=== PATIENT | male | born 1990 | race Caucasian/White ===

== ENCOUNTER 2017-07-27 13:47 | Inpatient (IN) | payer BC, MEDICAID ==
[~2017-07-27] VITALS: Ht 180.3 cm; Wt 59.1 kg
[~2017-07-27 13:47] MED LIST: CYCL-1 PO; FAMO20TA8 PO; GABA-534 PO; INSU100V11 SQ; LANTUS SQ; ONDA4TAB9 PO; PANT-47 PO; POTA20TA19 PO
[2017-07-27] MEDS ORDERED: normal saline 1000ML IV soln IVB ONE ×3 (14:05→17:05)
[2017-07-27 14:30] LABS: HEMATOCRIT 47.3 % (42.0-52.0); HEMOGLOBIN 15.7 g/dl (14.0-17.9); MEAN CORPUSCULAR HEMOGLOBIN 28.9 PG (27.0-31.0); MEAN CORPUSCULAR HGB CONC 33.2 % (33.0-36.5); PLATELET COUNT 608 X10'3 (140-440); RED BLOOD COUNT 5.44 X10'6 (4.70-6.10); RED CELL DISTRIBUTION WIDTH 12.2 % (11.5-14.5)
[2017-07-27] MEDS ORDERED: ondansetron/PF 4mg/2ml inj IV ONE (14:30)
[2017-07-27 14:37] LABS: WHITE BLOOD COUNT 31.4 X10'3 (4.5-11.0)
[2017-07-27 14:52] LABS: HYPOCHROMASIA 1+; MICROCYTOSIS 1+; PLATELET ESTIMATE INCREASED; TOTAL CELLS COUNTED 100
[2017-07-27] MEDS ORDERED: proCHLORperazine 10 MG/2 ml inj IV ONE (14:55)
[2017-07-27] MEDS ORDERED: pantoprazole 40 MG vial IV ONE (14:55)
[2017-07-27 15:27] LABS: INR 1.1 INR; PARTIAL THROMBOPLASTIN TIME 24 SECONDS (22-32); PROTHROMBIN TIME 11.4 SECONDS (9.0-12.0)
[2017-07-27] MEDS ORDERED: LORazepam 2 mg/ml vial IV ONE (16:05)
[2017-07-27 16:22] LABS: ALANINE AMINOTRANSFERASE 16 U/L (12-78); ALBUMIN 3.2 G/DL (3.4-5.0); ALKALINE PHOSPHATASE 72 IU/L (46-116); ANION GAP 24 (8-16); ASPARTATE AMINO TRANSFERASE 13 U/L (10-37); BILIRUBIN,TOTAL 0.7 MG/DL (0.1-1.0); BLOOD UREA NITROGEN 33 MG/DL (7-18); BUN/CREATININE RATIO 17.5 (5.4-32.0); CALCIUM 8.3 MG/DL (8.5-10.1); CHLORIDE 97 MMOL/L (99-107); CREATININE 1.89 MG/DL (0.60-1.10); GLUCOSE 299 MG/DL (70-104); SODIUM 142 MMOL/L (135-145); TOTAL CARBON DIOXIDE 21.5 MMOL/L (24-32); TOTAL PROTEIN 6.4 G/DL (6.4-8.2); eGFR 43 ML/MIN
[2017-07-27 16:31] LABS: POTASSIUM 2.9 MMOL/L (3.5-5.1)
[2017-07-27 16:53] LABS: CLARITY,URINE SLIGHTLY CLOUDY (Clear); COLOR,URINE YELLOW (Yellow); GLUCOSE, URINE >=1000 mg/dl (Neg); KETONES,URINE >=80 mg/dl (Neg); LEUKOCYTE ESTERASE ,URINE NEGATIVE (Neg); NITRITES, URINE NEGATIVE (Neg); OCCULT BLOOD,URINE MODERATE (Neg); PH,URINE 5.5 (4.8-8.0); PROTEIN,URINE 30 mg/dl (Neg); UROBILINOGEN,URINE 0.2 E.U/dL (0.2-1.0)
[2017-07-27 17:02] LABS: UA COLLECTION TYPE URINAL
[2017-07-27 17:03] LABS: BACTERIA,URINE NONE SEEN /HPF (Neg); HYALINE CASTS 0-3 /LPF (NEGATIVE); MUCUS STRANDS MODERATE /LPF (Neg); SQUAMOUS EPITHELIAL CELL,UR NONE SEEN /LPF (FEW); WBC,URINE 0-4 /HPF (0-4)
[2017-07-27] MEDS ORDERED: glucagon, human recombinant 1mg kit SUBCUT PRN (17:15)
[2017-07-27] MEDS ORDERED: dextrose 50%-water 50ml dispensing syringe IV PRN ×2 (17:15)
[2017-07-27] MEDS ORDERED: dextrose ORAL solution 15 GM/59 ML bottle PO PRN ×2 (17:15)
[2017-07-27] MEDS ORDERED: MESSAGE TO PHARMACY PO ONE (17:15)
[2017-07-27] MEDS ORDERED: cefepime 1GM/NS ADD-VANTAGE 100 ML IV ONE (17:15)
[2017-07-27 17:19] LABS: MAGNESIUM 1.1 MG/DL (1.5-2.4); PHOSPHORUS 2.4 MG/DL (2.3-4.5)
[2017-07-27 17:21] LABS: URINE AMPHETAMINE SCREEN NEGATIVE (Neg); URINE BARBITUATE SCREEN NEGATIVE (Neg); URINE BENZODIAZEPINES SCREEN NEGATIVE (Neg); URINE CANNABINOID SCREEN POSITIVE (Neg); URINE COCAINE SCREEN NEGATIVE (Neg); URINE METHADONE SCREEN NEGATIVE (Neg); URINE OPIATE SCREEN NEGATIVE (Neg); URINE PHENCYCLIDINE SCREEN NEGATIVE (Neg)
[2017-07-27] MEDS: potassium 10mEq/100ml NS w/LIDOcaine (10mg/bag) IV SCH ×2 (17:40→20:41)
[2017-07-27] MEDS ORDERED: vancomycin/NS 1 GM ADD-VANTAGE 250 ML IV ONE (17:40)
[2017-07-27 18:08] LABS: HEMATOCRIT 40.4 % (42.0-52.0); HEMOGLOBIN 13.4 g/dl (14.0-17.9); MEAN CORPUSCULAR HEMOGLOBIN 29.4 PG (27.0-31.0); MEAN CORPUSCULAR HGB CONC 33.3 % (33.0-36.5); MEAN CORPUSCULAR VOLUME 88.5 FL (78-98); MEAN PLATELET VOLUME 9.3 FL (7.4-10.4); PLATELET COUNT 479 X10'3 (140-440); RED BLOOD COUNT 4.57 X10'6 (4.70-6.10); RED CELL DISTRIBUTION WIDTH 12.5 % (11.5-14.5)
[2017-07-27 18:09] LABS: WHITE BLOOD COUNT 29.5 X10'3 (4.5-11.0)
[2017-07-27 18:21] LABS: MICROCYTOSIS 1+; PLATELET ESTIMATE INCREASED; TOTAL CELLS COUNTED 100
[2017-07-27] MEDS: metoclopramide 5 mg/ml inj IV PRN (18:27)
[2017-07-27] MEDS: ondansetron 4mg rapidly disintigrating tab PO PRN ×2 (18:29→22:27)
[2017-07-27 18:31] LABS: ALANINE AMINOTRANSFERASE 18 U/L (12-78); ALBUMIN 3.2 G/DL (3.4-5.0); ALKALINE PHOSPHATASE 72 IU/L (46-116); ANION GAP 21 (8-16); ASPARTATE AMINO TRANSFERASE 13 U/L (10-37); BILIRUBIN,TOTAL 0.7 MG/DL (0.1-1.0); BLOOD UREA NITROGEN 29 MG/DL (7-18); BUN/CREATININE RATIO 26.4 (5.4-32.0); CALCIUM 8.3 MG/DL (8.5-10.1); CHLORIDE 96 MMOL/L (99-107); GLUCOSE 337 MG/DL (70-104); MAGNESIUM 1.4 MG/DL (1.5-2.4); PHOSPHORUS 3.7 MG/DL (2.3-4.5); POTASSIUM 3.3 MMOL/L (3.5-5.1); SODIUM 136 MMOL/L (135-145); TOTAL CARBON DIOXIDE 18.9 MMOL/L (24-32); TOTAL PROTEIN 6.3 G/DL (6.4-8.2); eGFR 80 ML/MIN
[2017-07-27 18:41] LABS: HEMOGLOBIN A1C 8.3 % (4.5-6.2)
[2017-07-27] MEDS: [UNRECOGNIZED DRUG - OTHER] IV SCH ×8 (19:22→22:13)
[2017-07-27] MEDS: POTASSIUM CL IV SCH ×8 (19:22→22:13)
[2017-07-27] MEDS: MAGNESIUM IV SCH ×8 (19:22→22:13)
[2017-07-27] MEDS: pantoprazole 40 MG vial IV SCH (20:51)
[2017-07-27] MEDS: Insulin Detemir pen SQ SCH (21:15)
[2017-07-27] MEDS: insulin Lispro (HumaLOG) vial - multi-dose SQ SCH (21:16)
[2017-07-27 22:00] VITALS: BP 124/72
[2017-07-28] VITALS (16 sets, daily range): BP systolic 113–146; BP diastolic 66–91
[2017-07-28 01:17] LABS: BASOPHILS # (AUTO) 0.1 X10'3 (0-0.2); BASOPHILS % (AUTO) 0.2 % (0-1); EOSINOPHILS % (AUTO) 0 % (0-6); HEMATOCRIT 39.2 % (42.0-52.0); HEMOGLOBIN 13.2 g/dl (14.0-17.9); LYMPHOCYTES % (AUTO) 3.2 % (21-51); MEAN CORPUSCULAR HEMOGLOBIN 29.2 PG (27.0-31.0); MEAN CORPUSCULAR HGB CONC 33.7 % (33.0-36.5); MEAN CORPUSCULAR VOLUME 86.6 FL (78-98); MEAN PLATELET VOLUME 9.4 FL (7.4-10.4); MONOCYTES # (AUTO) 2.1 X10'3 (0-0.9); MONOCYTES % (AUTO) 6.8 % (2-12); NEUTROPHILS # (AUTO) 28.3 X10'3 (1.8-7.7); NEUTROPHILS % (AUTO) 89.8 % (42-75); PLATELET COUNT 419 X10'3 (140-440); RED BLOOD COUNT 4.52 X10'6 (4.70-6.10); RED CELL DISTRIBUTION WIDTH 11.8 % (11.5-14.5)
[2017-07-28 01:18] LABS: ALANINE AMINOTRANSFERASE 19 U/L (12-78); ALBUMIN 3.2 G/DL (3.4-5.0); ALKALINE PHOSPHATASE 72 IU/L (46-116); ANION GAP 16 (8-16); ASPARTATE AMINO TRANSFERASE 17 U/L (10-37); BILIRUBIN,TOTAL 0.7 MG/DL (0.1-1.0); BLOOD UREA NITROGEN 22 MG/DL (7-18); BUN/CREATININE RATIO 26.2 (5.4-32.0); CALCIUM 8.3 MG/DL (8.5-10.1); CHLORIDE 102 MMOL/L (99-107); CREATININE 0.84 MG/DL (0.60-1.10); GLUCOSE 151 MG/DL (70-104); POTASSIUM 4.2 MMOL/L (3.5-5.1); SODIUM 137 MMOL/L (135-145); TOTAL CARBON DIOXIDE 19.5 MMOL/L (24-32); TOTAL PROTEIN 6.4 G/DL (6.4-8.2); WHITE BLOOD COUNT 31.5 X10'3 (4.5-11.0); eGFR > 90 ML/MIN
[2017-07-28 01:22] LABS: MAGNESIUM 1.7 MG/DL (1.5-2.4); PHOSPHORUS 3.2 MG/DL (2.3-4.5)
[2017-07-28 02:13] LABS: TOTAL CELLS COUNTED 100
[2017-07-28 02:14] LABS: LARGE PLATELETS FEW; MICROCYTOSIS 1+; PLATELET ESTIMATE NORMAL
[2017-07-28] MEDS: [UNRECOGNIZED DRUG - OTHER] IV SCH ×24 (02:49→20:24)
[2017-07-28] MEDS: MAGNESIUM IV SCH ×24 (02:49→20:24)
[2017-07-28] MEDS: POTASSIUM CL IV SCH ×24 (02:49→20:24)
[2017-07-28] MEDS: cefepime 1GM/NS ADD-VANTAGE 100 ML IV SCH ×2 (07:38→20:24)
[2017-07-28] MEDS: pantoprazole 40 MG vial IV SCH (07:38)
[2017-07-28] MEDS: ondansetron/PF 4mg/2ml inj IV PRN ×3 (07:53→20:24)
[2017-07-28] MEDS ORDERED: vancomycin/NS 1 GM ADD-VANTAGE 250 ML IV ONE (08:00)
[2017-07-28 08:01] LABS: BASOPHILS % (AUTO) 0 % (0-1); EOSINOPHILS # (AUTO) 0.5 X10'3 (0-0.9); EOSINOPHILS % (AUTO) 1.7 % (0-6); HEMOGLOBIN 12.2 g/dl (14.0-17.9); LYMPHOCYTES # (AUTO) 1.1 X10'3 (1.1-4.8); MEAN CORPUSCULAR HEMOGLOBIN 29.1 PG (27.0-31.0); MEAN CORPUSCULAR HGB CONC 33.1 % (33.0-36.5); MEAN CORPUSCULAR VOLUME 88.1 FL (78-98); MEAN PLATELET VOLUME 8.9 FL (7.4-10.4); MONOCYTES # (AUTO) 1.6 X10'3 (0-0.9); MONOCYTES % (AUTO) 5.9 % (2-12); NEUTROPHILS # (AUTO) 24.6 X10'3 (1.8-7.7); NEUTROPHILS % (AUTO) 88.4 % (42-75); PLATELET COUNT 360 X10'3 (140-440); RED CELL DISTRIBUTION WIDTH 12.7 % (11.5-14.5)
[2017-07-28 08:11] LABS: WHITE BLOOD COUNT 27.8 X10'3 (4.5-11.0)
[2017-07-28 08:30] LABS: ALANINE AMINOTRANSFERASE 21 U/L (12-78); ALBUMIN 3.1 G/DL (3.4-5.0); ALBUMIN/GLOBULIN RATIO 0.9 (1.1-1.5); ALKALINE PHOSPHATASE 70 IU/L (46-116); ANION GAP 15 (8-16); ASPARTATE AMINO TRANSFERASE 19 U/L (10-37); BILIRUBIN,TOTAL 0.6 MG/DL (0.1-1.0); BLOOD UREA NITROGEN 14 MG/DL (7-18); BUN/CREATININE RATIO 19.7 (5.4-32.0); CALCIUM 8.6 MG/DL (8.5-10.1); CHLORIDE 102 MMOL/L (99-107); CREATININE 0.71 MG/DL (0.60-1.10); GLUCOSE 105 MG/DL (70-104); MAGNESIUM 2.1 MG/DL (1.5-2.4); PHOSPHORUS 3.1 MG/DL (2.3-4.5); POTASSIUM 4.5 MMOL/L (3.5-5.1); SODIUM 135 MMOL/L (135-145); TOTAL CARBON DIOXIDE 18.4 MMOL/L (24-32); TOTAL PROTEIN 6.4 G/DL (6.4-8.2); eGFR > 90 ML/MIN
[2017-07-28] MEDS ORDERED: metoclopramide 10mg tablet PO PRN (09:15)
[2017-07-28] MEDS ORDERED: insulin Lispro (HumaLOG) vial - multi-dose SQ SCH (09:15)
[2017-07-28] MEDS: pantoprazole 40mg Tablet.DR PO SCH (09:15)
[2017-07-28] MEDS ORDERED: ondansetron 4mg rapidly disintigrating tab PO PRN (09:15)
[2017-07-28] MEDS: potassium Cl 20 mEq SR tablet PO SCH (09:15)
[2017-07-28] MEDS ORDERED: cyclobenzaprine 10mg tablet PO PRN (09:15)
[2017-07-28] MEDS: sodium chloride 0.45% 1,000 ML IV SCH ×3 (09:45→11:33)
[2017-07-28] MEDS: proCHLORperazine 10 MG/2 ml inj IV PRN ×2 (10:55→18:37)
[2017-07-28 13:31] LABS: BASOPHILS % (AUTO) 0 % (0-1); EOSINOPHILS # (AUTO) 0.5 X10'3 (0-0.9); EOSINOPHILS % (AUTO) 1.8 % (0-6); HEMATOCRIT 36.3 % (42.0-52.0); HEMOGLOBIN 12.2 g/dl (14.0-17.9); LYMPHOCYTES # (AUTO) 1.2 X10'3 (1.1-4.8); LYMPHOCYTES % (AUTO) 4.9 % (21-51); MEAN CORPUSCULAR HEMOGLOBIN 29.6 PG (27.0-31.0); MEAN CORPUSCULAR HGB CONC 33.6 % (33.0-36.5); MEAN CORPUSCULAR VOLUME 87.9 FL (78-98); MEAN PLATELET VOLUME 8.4 FL (7.4-10.4); MONOCYTES # (AUTO) 1.6 X10'3 (0-0.9); MONOCYTES % (AUTO) 6.4 % (2-12); NEUTROPHILS % (AUTO) 86.9 % (42-75); PLATELET COUNT 342 X10'3 (140-440); RED BLOOD COUNT 4.12 X10'6 (4.70-6.10); RED CELL DISTRIBUTION WIDTH 12.8 % (11.5-14.5)
[2017-07-28 13:33] LABS: WHITE BLOOD COUNT 25.4 X10'3 (4.5-11.0)
[2017-07-28 13:45] LABS: ALANINE AMINOTRANSFERASE 21 U/L (12-78); ALBUMIN/GLOBULIN RATIO 0.9 (1.1-1.5); ALKALINE PHOSPHATASE 71 IU/L (46-116); ANION GAP 19 (8-16); ASPARTATE AMINO TRANSFERASE 18 U/L (10-37); BILIRUBIN,TOTAL 0.6 MG/DL (0.1-1.0); BLOOD UREA NITROGEN 8 MG/DL (7-18); BUN/CREATININE RATIO 12.5 (5.4-32.0); CALCIUM 8.5 MG/DL (8.5-10.1); CHLORIDE 99 MMOL/L (99-107); CREATININE 0.64 MG/DL (0.60-1.10); GLUCOSE 177 MG/DL (70-104); MAGNESIUM 1.9 MG/DL (1.5-2.4); PHOSPHORUS 2.7 MG/DL (2.3-4.5); POTASSIUM 4.4 MMOL/L (3.5-5.1); SODIUM 134 MMOL/L (135-145); TOTAL CARBON DIOXIDE 15.6 MMOL/L (24-32); TOTAL PROTEIN 6.4 G/DL (6.4-8.2); eGFR > 90 ML/MIN
[2017-07-28] MEDS: benzocaine/menthol oral lozeng 1 EACH BOX MM PRN ×2 (13:56→18:37)
[2017-07-28] MEDS: HYDROmorphone 2mg tablet PO PRN ×2 (15:15→20:25)
[2017-07-28] MEDS: gabapentin 400mg capsule PO SCH ×2 (16:00→23:55)
[2017-07-28] MEDS ORDERED: iohexol 300mg/ml 100ml inj. ONE (16:17)
[2017-07-28] MEDS: lactobacillus rhamnosus 10,000 MMU CELLS/CAPSULE PO SCH (17:30)
[2017-07-28] MEDS: VANCOMYCIN 750MG IV in NS 250 ML IV SCH (17:49)
[2017-07-28 19:33] LABS: BASOPHILS % (AUTO) 0 % (0-1); EOSINOPHILS # (AUTO) 0.4 X10'3 (0-0.9); EOSINOPHILS % (AUTO) 1.7 % (0-6); HEMATOCRIT 37.7 % (42.0-52.0); HEMOGLOBIN 12.7 g/dl (14.0-17.9); LYMPHOCYTES # (AUTO) 1.2 X10'3 (1.1-4.8); LYMPHOCYTES % (AUTO) 4.6 % (21-51); MEAN CORPUSCULAR HEMOGLOBIN 29.6 PG (27.0-31.0); MEAN CORPUSCULAR HGB CONC 33.6 % (33.0-36.5); MEAN CORPUSCULAR VOLUME 88.1 FL (78-98); MEAN PLATELET VOLUME 8.8 FL (7.4-10.4); MONOCYTES # (AUTO) 1.3 X10'3 (0-0.9); MONOCYTES % (AUTO) 5.3 % (2-12); NEUTROPHILS # (AUTO) 22.3 X10'3 (1.8-7.7); NEUTROPHILS % (AUTO) 88.4 % (42-75); PLATELET COUNT 356 X10'3 (140-440); RED BLOOD COUNT 4.28 X10'6 (4.70-6.10); RED CELL DISTRIBUTION WIDTH 12.7 % (11.5-14.5)
[2017-07-28 19:36] LABS: WHITE BLOOD COUNT 25.3 X10'3 (4.5-11.0)
[2017-07-28 20:00] LABS: ALANINE AMINOTRANSFERASE 25 U/L (12-78); ALBUMIN 3.2 G/DL (3.4-5.0); ALBUMIN/GLOBULIN RATIO 0.8 (1.1-1.5); ALKALINE PHOSPHATASE 84 IU/L (46-116); ANION GAP 20 (8-16); ASPARTATE AMINO TRANSFERASE 17 U/L (10-37); BILIRUBIN,TOTAL 0.6 MG/DL (0.1-1.0); BLOOD UREA NITROGEN 7 MG/DL (7-18); BUN/CREATININE RATIO 10.9 (5.4-32.0); CALCIUM 8.7 MG/DL (8.5-10.1); CHLORIDE 99 MMOL/L (99-107); CREATININE 0.64 MG/DL (0.60-1.10); GLUCOSE 204 MG/DL (70-104); MAGNESIUM 2.1 MG/DL (1.5-2.4); PHOSPHORUS 3.1 MG/DL (2.3-4.5); POTASSIUM 5.3 MMOL/L (3.5-5.1); SODIUM 132 MMOL/L (135-145); eGFR > 90 ML/MIN
[2017-07-28 20:18] LABS: TOTAL CARBON DIOXIDE 12.9 MMOL/L (24-32)
[2017-07-28] MEDS: famotidine 20mg tablet PO SCH (20:25)
[2017-07-28] MEDS ORDERED: insulin glargine (Lantus) pen - multi-dose SQ SCH (21:00)
[2017-07-28] MEDS: Insulin Detemir pen SQ SCH (21:00)
[2017-07-28] MEDS: metoclopramide 5 mg/ml inj IV PRN (23:03)
[2017-07-29] VITALS (10 sets, daily range): BP systolic 117–144; BP diastolic 68–95
[2017-07-29] MEDS: VANCOMYCIN 750MG IV in NS 250 ML IV SCH ×2 (00:08→09:35)
[2017-07-29] MEDS: proCHLORperazine 10 MG/2 ml inj IV PRN (00:50)
[2017-07-29] MEDS: POTASSIUM CL IV SCH ×12 (00:51→11:30)
[2017-07-29] MEDS: [UNRECOGNIZED DRUG - OTHER] IV SCH ×12 (00:51→11:30)
[2017-07-29] MEDS: MAGNESIUM IV SCH ×12 (00:51→11:30)
[2017-07-29] MEDS: HYDROmorphone 2mg tablet PO PRN ×2 (02:02→06:53)
[2017-07-29] MEDS ORDERED: LORazepam 2 mg/ml vial IV ONE (02:40)
[2017-07-29] MEDS: ondansetron/PF 4mg/2ml inj IV PRN ×2 (03:30→10:00)
[2017-07-29] MEDS: metoclopramide 5 mg/ml inj IV PRN (06:53)
[2017-07-29] MEDS: ringers solution, lacted 1,000 ML IV SCH ×2 (07:08→09:16)
[2017-07-29] MEDS ORDERED: VANCOMYCIN LEVEL IV ONE (07:30)
[2017-07-29] MEDS: lactobacillus rhamnosus 10,000 MMU CELLS/CAPSULE PO SCH (07:30)
[2017-07-29] MEDS: insulin Lispro (HumaLOG) vial - multi-dose SQ SCH (07:36)
[2017-07-29] MEDS: pantoprazole 40mg Tablet.DR PO SCH (08:00)
[2017-07-29] MEDS: famotidine 20mg tablet PO SCH (08:00)
[2017-07-29] MEDS: potassium Cl 20 mEq SR tablet PO SCH (08:00)
[2017-07-29] MEDS: gabapentin 400mg capsule PO SCH (08:00)
[2017-07-29 08:24] LABS: BASOPHILS % (AUTO) 0 % (0-1); EOSINOPHILS # (AUTO) 0.4 X10'3 (0-0.9); EOSINOPHILS % (AUTO) 1.6 % (0-6); HEMATOCRIT 43.8 % (42.0-52.0); HEMOGLOBIN 14.3 g/dl (14.0-17.9); LYMPHOCYTES # (AUTO) 0.8 X10'3 (1.1-4.8); LYMPHOCYTES % (AUTO) 3.6 % (21-51); MEAN CORPUSCULAR HEMOGLOBIN 29.2 PG (27.0-31.0); MEAN CORPUSCULAR HGB CONC 32.6 % (33.0-36.5); MEAN CORPUSCULAR VOLUME 89.5 FL (78-98); MEAN PLATELET VOLUME 9.4 FL (7.4-10.4); MONOCYTES # (AUTO) 0.8 X10'3 (0-0.9); MONOCYTES % (AUTO) 3.8 % (2-12); NEUTROPHILS # (AUTO) 19.6 X10'3 (1.8-7.7); PLATELET COUNT 369 X10'3 (140-440); RED BLOOD COUNT 4.89 X10'6 (4.70-6.10); RED CELL DISTRIBUTION WIDTH 12.9 % (11.5-14.5); WHITE BLOOD COUNT 21.5 X10'3 (4.5-11.0)
[2017-07-29] MEDS: cefepime 1GM/NS ADD-VANTAGE 100 ML IV SCH (08:41)
[2017-07-29 08:46] LABS: ALANINE AMINOTRANSFERASE 25 U/L (12-78); ALBUMIN 3.6 G/DL (3.4-5.0); ALBUMIN/GLOBULIN RATIO 0.8 (1.1-1.5); ALKALINE PHOSPHATASE 111 IU/L (46-116); ANION GAP 27 (8-16); ASPARTATE AMINO TRANSFERASE 16 U/L (10-37); BILIRUBIN,TOTAL 0.6 MG/DL (0.1-1.0); BLOOD UREA NITROGEN 11 MG/DL (7-18); BUN/CREATININE RATIO 13.6 (5.4-32.0); CALCIUM 9.5 MG/DL (8.5-10.1); CHLORIDE 94 MMOL/L (99-107); CREATININE 0.81 MG/DL (0.60-1.10); GLUCOSE 277 MG/DL (70-104); MAGNESIUM 2.3 MG/DL (1.5-2.4); SODIUM 127 MMOL/L (135-145); TOTAL PROTEIN 8.3 G/DL (6.4-8.2); VANCOMYCIN,TROUGH 6.3 UG/ML (6.0-14.0); eGFR > 90 ML/MIN
[2017-07-29 08:49] LABS: POTASSIUM 6.3 MMOL/L (3.5-5.1)
[2017-07-29 08:50] LABS: TOTAL CARBON DIOXIDE 5.6 MMOL/L (24-32)
[2017-07-29 08:51] LABS: TROPONIN I < 0.04 NG/ML (0.0-0.05)
[2017-07-29] MEDS ORDERED: insulin regular, DKA only 100 UNIT in normal saline 100ml IV soln 99 ML IV SCH ×2 (09:07)
[2017-07-29] MEDS ORDERED: dextrose 5%-normal saline 1,000 ML IV SCH (09:10)
[2017-07-29 11:48] LABS: ALBUMIN 3.1 G/DL (3.4-5.0); ANION GAP 22 (8-16); BLOOD UREA NITROGEN 10 MG/DL (7-18); BUN/CREATININE RATIO 11.6 (5.4-32.0); CALCIUM 8.8 MG/DL (8.5-10.1); CHLORIDE 100 MMOL/L (99-107); CREATININE 0.86 MG/DL (0.60-1.10); GLUCOSE 171 MG/DL (70-104); PHOSPHORUS 3.1 MG/DL (2.3-4.5); POTASSIUM 4.9 MMOL/L (3.5-5.1); SODIUM 132 MMOL/L (135-145); eGFR > 90 ML/MIN
[2017-07-29 11:50] LABS: TOTAL CARBON DIOXIDE 9.6 MMOL/L (24-32)
[2017-07-29] MEDS ORDERED: HYDROmorphone 2mg tablet PO PRN (11:55)
[2017-07-29] MEDS ORDERED: potassium Cl 20mEq in D5-NS 1,000 ML IV SCH (12:10)
[2017-07-29 13:51] LABS: ALBUMIN 2.9 G/DL (3.4-5.0); ANION GAP 17 (8-16); BLOOD UREA NITROGEN 10 MG/DL (7-18); BUN/CREATININE RATIO 12.3 (5.4-32.0); CALCIUM 8.9 MG/DL (8.5-10.1); CHLORIDE 104 MMOL/L (99-107); CREATININE 0.81 MG/DL (0.60-1.10); GLUCOSE 76 MG/DL (70-104); MAGNESIUM 1.8 MG/DL (1.5-2.4); POTASSIUM 4.2 MMOL/L (3.5-5.1); SODIUM 134 MMOL/L (135-145); eGFR > 90 ML/MIN
[2017-07-29 13:53] LABS: TOTAL CARBON DIOXIDE 13.2 MMOL/L (24-32)
[2017-07-29] MEDS ORDERED: vancomycin/NS 1 GM ADD-VANTAGE 250 ML IV SCH (16:00)
[2017-07-29] MEDS ORDERED: famotidine/PF 10 mg/ml inj IV SCH (20:00)
[2017-07-30] MEDS ORDERED: VANCOMYCIN LEVEL IV ONE (15:30)
[2017-07-31] MEDS ORDERED: INSU100V9 SQ (17:55)
[2017-08-02] MEDS ORDERED: HYDR-569 PO (11:43)
== END 2017-07-29 15:20 | disposition left against medical advice (07) | DRG 638 ==
LOC: ER 13:48 → ED HOLD 17:13 → EDBEDREQ 18:29 → PCU 3S 18:59 → ICU 2S 07-28 10:00
PROVIDERS: ADMIT Internal Medicine Critical Care Medicine; ATTEND Internal Medicine Critical Care Medicine
PROC: BW211ZZ Computerized Tomography (CT Scan) of Abdomen and Pelvis using Low Osmolar Contrast (ICD-10-PCS; principal; 2017-07-28)
DX: E10.10 Type 1 diabetes mellitus with ketoacidosis without coma (principal); N17.9 Acute kidney failure, unspecified; E86.0 Dehydration; G89.29 Other chronic pain; K52.9 Noninfective gastroenteritis and colitis, unspecified; F12.90 Cannabis use, unspecified, uncomplicated; M54.9 Dorsalgia, unspecified; Z53.21 Procedure and treatment not carried out due to patient leaving prior to being seen by health care provider; D72.829 Elevated white blood cell count, unspecified; Z79.899 Other long term (current) drug therapy; Z79.4 Long term (current) use of insulin; Z83.3 Family history of diabetes mellitus; Z86.14 Personal history of Methicillin resistant Staphylococcus aureus infection
CPT/HCPCS: 36415; 71010; 74176; 74177; 76700; 80048; 80053; 80202; 80305; 81001; 81002; 82009; 82948; 83036; 83605; 83735; 83880; 84100; 84145; 84439; 84443; 84484; 85025; 85610; 85730; 87040; 87070; 87081; 87502; 87503; 87880; 93005; 96361; 96374; 96375; 99291; A6213; A6449; C9113; J0692; J0780; J1815; J2060; J2270; J2405; J2765; J3370; J3475; J3480; J7030; J7042; J7120; Q9967

== ENCOUNTER 2019-07-28 15:49 | Inpatient (IN) | payer BC, OTHER ==
[~2019-07-28] VITALS: Ht 180.3 cm; Wt 71.4 kg
[~2019-07-28 15:49] MED LIST changes: -CYCL-1 PO; +DOXY100C2 PO; -FAMO20TA8 PO; -GABA-534 PO; +GABA600T13 PO; +INSU100C10 SQ; -INSU100V11 SQ; +INSU100V9 SQ; -LANTUS SQ; -ONDA4TAB9 PO; -PANT-47 PO; -POTA20TA19 PO
[2019-07-28] MEDS ORDERED: normal saline 1000ML IV soln IVB ONE ×3 (16:05→16:50)
[2019-07-28] MEDS ORDERED: diphenhydrAMINE 50 mg/ml inj IV ONE (16:05)
[2019-07-28] MEDS ORDERED: pantoprazole 40 MG vial IV ONE (16:05)
[2019-07-28] MEDS ORDERED: proCHLORperazine 10 MG/2 ml inj IV ONE (16:05)
[2019-07-28 16:28] LABS: BASOPHILS % (AUTO) 0.2 % (0-1); EOSINOPHILS % (AUTO) 0 % (0-6); HEMATOCRIT 40.8 % (42.0-52.0); HEMOGLOBIN 12.9 g/dl (14.0-17.9); LYMPHOCYTES # (AUTO) 0.9 X10'3 (1.1-4.8); LYMPHOCYTES % (AUTO) 4.1 % (21-51); MEAN CORPUSCULAR HEMOGLOBIN 26.9 PG (27.0-31.0); MEAN CORPUSCULAR HGB CONC 31.6 g/dL (33.0-36.5); MEAN CORPUSCULAR VOLUME 85.1 FL (78-98); MEAN PLATELET VOLUME 8.6 FL (7.4-10.4); MONOCYTES # (AUTO) 0.6 X10'3 (0-0.9); MONOCYTES % (AUTO) 2.7 % (2-12); PLATELET COUNT 475 X10'3 (140-440); RED BLOOD COUNT 4.79 X10'6 (4.70-6.10); RED CELL DISTRIBUTION WIDTH 16.1 % (11.5-14.5); WHITE BLOOD COUNT 22.6 X10'3 (4.5-11.0)
[2019-07-28 16:40] LABS: CLARITY,URINE CLEAR (Clear); COLOR,URINE YELLOW (Yellow); GLUCOSE, URINE 500 mg/dl (Neg); KETONES,URINE >=80 mg/dl (Neg); LEUKOCYTE ESTERASE ,URINE NEGATIVE (Neg); NITRITES, URINE NEGATIVE (Neg); OCCULT BLOOD,URINE TRACE-INTACT (Neg); PH,URINE 5.5 (4.8-8.0); PROTEIN,URINE NEGATIVE (Neg); UROBILINOGEN,URINE 0.2 E.U/dL (0.2-1.0)
[2019-07-28 16:41] LABS: UA COLLECTION TYPE URINAL
[2019-07-28 16:43] LABS: ALANINE AMINOTRANSFERASE 66 U/L (12-78); ALBUMIN 3.3 G/DL (3.4-5.0); ALBUMIN/GLOBULIN RATIO 0.9 (1.1-1.5); ALKALINE PHOSPHATASE 94 IU/L (46-116); ANION GAP 26 (8-16); ASPARTATE AMINO TRANSFERASE 66 U/L (10-37); BILIRUBIN,TOTAL 0.5 MG/DL (0.1-1.0); BLOOD UREA NITROGEN 16 MG/DL (7-18); BUN/CREATININE RATIO 11.9 (5.4-32.0); CALCIUM 7.9 MG/DL (8.5-10.1); CHLORIDE 101 MMOL/L (99-107); CREATININE 1.34 MG/DL (0.60-1.10); LIPASE < 50 U/L (73-393); POTASSIUM 4.9 MMOL/L (3.5-5.1); SODIUM 135 MMOL/L (135-145); eGFR 63 ML/MIN
[2019-07-28 16:45] LABS: GLUCOSE 480 MG/DL (70-104)
[2019-07-28] MEDS ORDERED: LORazepam 2 mg/ml vial IV ONE (16:45)
[2019-07-28 16:46] LABS: TOTAL CARBON DIOXIDE 7.9 MMOL/L (24-32)
[2019-07-28] MEDS ORDERED: normal saline 1000ml 1,000 ML IV SCH ×2 (16:48→18:16)
[2019-07-28] MEDS ORDERED: potassium CL 20mEq in D5-1/2NS 1,000 ML IV PRN (16:48)
[2019-07-28 16:49] LABS: BACTERIA,URINE NONE SEEN /HPF (Neg); MUCUS STRANDS NONE SEEN /LPF (Neg); RBC,URINE 0-2 /HPF (0-2); SQUAMOUS EPITHELIAL CELL,UR FEW /LPF (FEW); WBC,URINE 0-4 /HPF (0-4)
[2019-07-28] MEDS ORDERED: sodium phosphate inj. 15 MMOL in dextrose 5%-water 150 ML IV PRN ×2 (16:50→18:20)
[2019-07-28] MEDS ORDERED: potassium Cl 20 mEq SR tablet PO PRN ×6 (16:50→18:20)
[2019-07-28] MEDS ORDERED: sodium phosphate inj. 30 MMOL in dextrose 5%-water 250 ML IV PRN ×2 (16:50→18:20)
[2019-07-28] MEDS ORDERED: potassium CL 10mEq/100ml bag 100 ML IV PRN ×5 (16:50→18:20)
[2019-07-28] MEDS ORDERED: Neutra Phos packet PO PRN ×2 (16:50→18:20)
[2019-07-28 17:11] LABS: ABG HCO3 4.8 mmol/L (22.0-26.0); ABG OXYGEN SATURATION 97.8 % (95-98); ABG PCO2 (T) 13.1 mmHg (35.0-45.0); ABG PH (T) 7.182 (7.350-7.450); ALLEN'S TEST Positive; FCOHb 0.1 % (0.5-1.5); FMetHb 0.4 % (0.3-1.12); FO2Hb 97.3 % (94-100); TOTAL HEMOGLOBIN 13.2 G/dl (14.0-17.9)
[2019-07-28 17:29] LABS: MAGNESIUM 1.8 MG/DL (1.5-2.4); PHOSPHORUS 4.5 MG/DL (2.3-4.5)
[2019-07-28] MEDS: insulin regular, DKA only 100 UNIT in normal saline 100ml IV soln 100 ML IV SCH ×2 (17:55)
[2019-07-28] MEDS: insulin regular, human vial - multi-dose IV PRN (17:56)
[2019-07-28] MEDS ORDERED: CYCL-1 PO (18:15)
[2019-07-28] MEDS ORDERED: sodium bicarbonate (8.4%) inj. 100 MEQ in dextrose 5% water 500ml 500 ML IV PRN (18:16)
[2019-07-28] MEDS ORDERED: insulin regular, DKA only 100 UNIT in normal saline 100ml IV soln 100 ML IV SCH ×2 (18:16)
[2019-07-28] MEDS ORDERED: sodium bicarbonate (8.4%) inj. 50 MEQ in dextrose 5% water 500ml 250 ML IV PRN (18:16)
[2019-07-28] MEDS ORDERED: ondansetron/PF 4mg/2ml inj IV PRN (18:20)
[2019-07-28] MEDS ORDERED: morphine 2 MG/ML inj. syringe IV PRN ×2 (18:20)
[2019-07-28] MEDS ORDERED: insulin regular, human vial - multi-dose IV PRN (18:20)
[2019-07-28] MEDS ORDERED: magnesium 2GM in 50ml NS 50 ML IV PRN (18:20)
[2019-07-28] MEDS ORDERED: magnesium 4gm in 100ml NS 100 ML IV PRN (18:20)
[2019-07-28] MEDS ORDERED: acetaminophen 325mg tablet PO PRN (18:20)
[2019-07-28] MEDS ORDERED: magnesium Cl slow-release 64mg tablet PO PRN (18:20)
[2019-07-28] MEDS ORDERED: HYDROcodone/acetaminophen 5mg/325mg tablet PO PRN (18:20)
[2019-07-28] MEDS ORDERED: HYDROcodone/acetaminophen 10/325mg tab PO PRN (18:20)
[2019-07-28] MEDS ORDERED: cyclobenzaprine 10mg tablet PO PRN (18:30)
--- NOTE | 2019-07-28 18:47 | NUR ---
PT TO CT
[2019-07-28] MEDS ORDERED: sodium bicarbonate (8.4%) inj. 100 MEQ in dextrose 5% water 500ml 1,000 ML IV PRN (18:57)
[2019-07-28] MEDS ORDERED: sodium bicarbonate (8.4%) inj. 75 MEQ in dextrose 5% water 500ml 500 ML IV PRN (18:58)
[2019-07-28] MEDS: potassium CL 10mEq/100ml bag 100 ML IV PRN (18:58)
[2019-07-28 19:06] LABS: HEMOGLOBIN A1C 11.4 % (4.5-6.2)
[2019-07-28 19:42] LABS: ALBUMIN 3.2 G/DL (3.4-5.0); ANION GAP 25 (8-16); BLOOD UREA NITROGEN 14 MG/DL (7-18); BUN/CREATININE RATIO 11.2 (5.4-32.0); CALCIUM 7.2 MG/DL (8.5-10.1); CHLORIDE 111 MMOL/L (99-107); CREATININE 1.25 MG/DL (0.60-1.10); GLUCOSE 282 MG/DL (70-104); PHOSPHORUS 2.5 MG/DL (2.3-4.5); POTASSIUM 4.7 MMOL/L (3.5-5.1); SODIUM 142 MMOL/L (135-145); eGFR 68 ML/MIN
[2019-07-28 19:45] LABS: TOTAL CARBON DIOXIDE 5.9 MMOL/L (24-32)
[2019-07-28 20:00] VITALS: BP 129/68
[2019-07-28] MEDS ORDERED: K and/or MAG REPLACEMENT MC SCH ×2 (20:00)
[2019-07-28] MEDS: K and/or MAG REPLACEMENT MC SCH (20:00)
--- NOTE | 2019-07-28 20:00 | NUR ---
Patient in room PCU 3014. I have received report from NILE Santos and had the opportunity to ask questions and assume patient care.Patient arrived on unit at approx 2000 ambulated to bed, on insuling drip and ns with 20 k
[2019-07-28] MEDS: potassium CL 20mEq in D5-1/2NS 1,000 ML IV PRN ×3 (20:14→21:56)
[2019-07-28] MEDS: docusate sod 100mg capsule PO SCH (20:21)
[2019-07-28] MEDS: heparin, porcine 5000 units/ml vial SQ SCH (20:21)
--- NOTE | 2019-07-28 20:42 | NUR ---
Patient switched to D5 1/2 NS with 20 K at 150
[2019-07-28] MEDS ORDERED: temazepam 15mg capsule PO PRN (21:00)
[2019-07-28 21:42] LABS: ANION GAP 20 (8-16); BLOOD UREA NITROGEN 13 MG/DL (7-18); BUN/CREATININE RATIO 11.7 (5.4-32.0); CALCIUM 7.3 MG/DL (8.5-10.1); CHLORIDE 114 MMOL/L (99-107); CREATININE 1.11 MG/DL (0.60-1.10); GLUCOSE 129 MG/DL (70-104); SODIUM 145 MMOL/L (135-145); eGFR 78 ML/MIN
[2019-07-28 21:49] LABS: TOTAL CARBON DIOXIDE 10.9 MMOL/L (24-32)
[2019-07-28] MEDS: Potassium Cl inj 20 MEQ in DEXTROSE 10 % AND 0.45 % NACL 1,000 ML IV SCH (22:27)
[2019-07-28 23:04] VITALS: BP 117/68
[2019-07-29 00:26] LABS: ALBUMIN 3.2 G/DL (3.4-5.0); ANION GAP 10 (8-16); BLOOD UREA NITROGEN 12 MG/DL (7-18); CALCIUM 7.7 MG/DL (8.5-10.1); CHLORIDE 114 MMOL/L (99-107); CREATININE 1.09 MG/DL (0.60-1.10); GLUCOSE 87 MG/DL (70-104); POTASSIUM 3.7 MMOL/L (3.5-5.1); SODIUM 143 MMOL/L (135-145); eGFR 79 ML/MIN
[2019-07-29] MEDS: insulin regular, DKA only 100 UNIT in normal saline 100ml IV soln 100 ML IV SCH ×4 (01:05→04:15)
--- NOTE | 2019-07-29 01:09 | NUR ---
Per Dr. Inman- change patient insulin drip from 5 u/hr to 4 u/hr and also to keep patient at 200 mL/hr D10 1/2NS w/20 k for potassium at 3.7, anion gap at 10, and carbon dioxide at 19.0 and improving.
[2019-07-29] MEDS: piperacillin/tazo 3.375gm/50ml 50 ML IV SCH ×4 (01:16→23:50)
[2019-07-29 03:07] VITALS: BP 118/74
--- NOTE | 2019-07-29 04:16 | NUR ---
Per Dr. Inman with BS of 68, turn insulin down to 3 units/hr and keep D10 1/2 NS w/20 k at 200 mL/hr
[2019-07-29] MEDS: Potassium Cl inj 20 MEQ in DEXTROSE 10 % AND 0.45 % NACL 1,000 ML IV SCH ×5 (04:36→16:19)
[2019-07-29 06:15] LABS: BASOPHILS # (AUTO) 0.1 X10'3 (0-0.2); BASOPHILS % (AUTO) 0.5 % (0-1); EOSINOPHILS % (AUTO) 0.1 % (0-6); HEMATOCRIT 33.5 % (42.0-52.0); HEMOGLOBIN 11.1 g/dl (14.0-17.9); LYMPHOCYTES # (AUTO) 1.5 X10'3 (1.1-4.8); LYMPHOCYTES % (AUTO) 8.1 % (21-51); MEAN CORPUSCULAR HEMOGLOBIN 27.2 PG (27.0-31.0); MEAN CORPUSCULAR HGB CONC 33.2 g/dL (33.0-36.5); MEAN CORPUSCULAR VOLUME 81.9 FL (78-98); MEAN PLATELET VOLUME 8.6 FL (7.4-10.4); MONOCYTES # (AUTO) 1.5 X10'3 (0-0.9); MONOCYTES % (AUTO) 8.3 % (2-12); NEUTROPHILS # (AUTO) 15.5 X10'3 (1.8-7.7); PLATELET COUNT 338 X10'3 (140-440); RED CELL DISTRIBUTION WIDTH 15.9 % (11.5-14.5); WHITE BLOOD COUNT 18.7 X10'3 (4.5-11.0)
--- NOTE | 2019-07-29 06:16 | NUR ---
Problems reprioritized. Patient report given, questions answered & plan of care reviewed with NILE Llamas.
--- NOTE | 2019-07-29 06:25 | NUR ---
Problems reprioritized. Patient report given, questions answered & plan of care reviewed with Talita DOWD.
[2019-07-29 06:30] VITALS: BP 115/74
[2019-07-29 06:42] LABS: ALANINE AMINOTRANSFERASE 50 U/L (12-78); ALBUMIN 2.7 G/DL (3.4-5.0); ALBUMIN/GLOBULIN RATIO 0.9 (1.1-1.5); ALKALINE PHOSPHATASE 73 IU/L (46-116); ANION GAP 9 (8-16); ASPARTATE AMINO TRANSFERASE 40 U/L (10-37); BILIRUBIN,TOTAL 0.2 MG/DL (0.1-1.0); BLOOD UREA NITROGEN 10 MG/DL (7-18); BUN/CREATININE RATIO 10.4 (5.4-32.0); CALCIUM 7.3 MG/DL (8.5-10.1); CHLORIDE 114 MMOL/L (99-107); CHOL/HDL RATIO 3.9 (0.00-4.99); CHOLESTEROL 201 MG/DL (0-200); CREATININE 0.96 MG/DL (0.60-1.10); GLUCOSE 98 MG/DL (70-104); HDL CHOLESTEROL 51 MG/DL (35-60); LDL CHOLESTEROL 131 MG/DL (50-100); MAGNESIUM 1.7 MG/DL (1.5-2.4); PHOSPHORUS 1.4 MG/DL (2.3-4.5); POTASSIUM 3.3 MMOL/L (3.5-5.1); SODIUM 143 MMOL/L (135-145); TOTAL CARBON DIOXIDE 19.6 MMOL/L (24-32); TOTAL PROTEIN 5.8 G/DL (6.4-8.2); TRIGLYCERIDES 142 MG/DL (20-135); eGFR > 90 ML/MIN
[2019-07-29] MEDS: docusate sod 100mg capsule PO SCH ×2 (07:23→20:19)
[2019-07-29] MEDS: pantoprazole 40mg Tablet.DR PO SCH (07:23)
[2019-07-29] MEDS: heparin, porcine 5000 units/ml vial SQ SCH ×2 (07:24→20:19)
[2019-07-29] MEDS: K and/or MAG REPLACEMENT MC SCH ×2 (07:24→20:00)
[2019-07-29] MEDS: potassium CL 10mEq/100ml bag 100 ML IV PRN ×9 (07:48→23:29)
--- NOTE | 2019-07-29 09:20 | NUR ---
Called pharmacy for IVF bag of D10 1/2 NS with 20 k+.
[2019-07-29 11:00] VITALS: BP 122/77
[2019-07-29] MEDS: acetaminophen 325mg tablet PO PRN ×2 (13:05→23:35)
[2019-07-29 13:33] LABS: ALBUMIN 2.6 G/DL (3.4-5.0); ANION GAP 9 (8-16); BLOOD UREA NITROGEN 8 MG/DL (7-18); BUN/CREATININE RATIO 8.7 (5.4-32.0); CALCIUM 7.5 MG/DL (8.5-10.1); CHLORIDE 112 MMOL/L (99-107); CREATININE 0.92 MG/DL (0.60-1.10); GLUCOSE 137 MG/DL (70-104); SODIUM 141 MMOL/L (135-145); TOTAL CARBON DIOXIDE 19.8 MMOL/L (24-32); eGFR > 90 ML/MIN
--- NOTE | 2019-07-29 13:40 | NUR ---
Page hospitalist "padmini [phone]- please call re; [phone]. Thank you!"
--- NOTE | 2019-07-29 13:45 | NUR ---
Received instructions from Dr. Negro to harrison IVF's to d51/2 Ns with 20 K+, replace K+, and repeat lab K+ in 4 hours.
[2019-07-29] MEDS: potassium CL 20mEq in D5-1/2NS 1,000 ML IV PRN (14:15)
--- NOTE | 2019-07-29 14:38 | NUR ---
Eleazar hospitalist, "padmini [phone]- Arnulfo Oconnell- At 1412 blood sugar 96 & started the D5 1/2 NS with 20 kcl" Received call back and made hospitalist aware of ABG to be done soon. Will cont. to ebenezer.
[2019-07-29 15:00] VITALS: BP 132/79
--- NOTE | 2019-07-29 15:46 | NUR ---
Paged hospitalist, "padmini [phone]- please call re; bran mckeon. Thank you" Waiting on callback
[2019-07-29 15:55] LABS: ABG BASE EXCESS -5.5 mmol/L (-2.0-3.0); ABG HCO3 18.3 mmol/L (22.0-26.0); ABG OXYGEN SATURATION 97.9 % (95-98); ABG PCO2 (T) 30.3 mmHg (35.0-45.0); ABG PH (T) 7.398 (7.350-7.450); ALLEN'S TEST Positive; FCOHb 0.3 % (0.5-1.5); FMetHb 0.1 % (0.3-1.12); FO2Hb 97.5 % (94-100); TOTAL HEMOGLOBIN 11.5 G/dl (14.0-17.9)
[2019-07-29] MEDS ORDERED: insulin regular, DKA only 100 UNIT in normal saline 100ml IV soln 100 ML IV SCH ×2 (16:00)
--- NOTE | 2019-07-29 16:30 | NUR ---
Dr. Negro had stated she wanted to d/c insulin before she leaves, unclear on a time, will follow up on time she wants to d/c insulin and have noc nurse give update on current bmp and blood glucose level and clarify what she wants to do when the time comes.
--- NOTE | 2019-07-29 16:52 | NUR ---
Eleazar hospitalist, "Muriel [phone]- Please call nurse radha for Arnulfo Bryant. Thank you." Wish to make her aware of extreme pain to left arm, iv removed, will measure arm circumference. Also to make aware that Blood sugar came up to 94. Waiting on callback
[2019-07-29] MEDS ORDERED: magnesium 4gm in 100ml NS 100 ML IV PRN (17:00)
[2019-07-29] MEDS ORDERED: magnesium Cl slow-release 64mg tablet PO PRN (17:00)
--- NOTE | 2019-07-29 18:23 | NUR ---
Problems reprioritized. Patient report given, questions answered & plan of care reviewed with Maurizio DOWD.
[2019-07-29] MEDS: insulin regular, human vial - multi-dose IV PRN (19:03)
[2019-07-29 19:13] LABS: ALBUMIN 2.5 G/DL (3.4-5.0); ANION GAP 9 (8-16); BLOOD UREA NITROGEN 6 MG/DL (7-18); BUN/CREATININE RATIO 6.6 (5.4-32.0); CALCIUM 7.4 MG/DL (8.5-10.1); CHLORIDE 110 MMOL/L (99-107); CREATININE 0.91 MG/DL (0.60-1.10); GLUCOSE 170 MG/DL (70-104); POTASSIUM 3.3 MMOL/L (3.5-5.1); SODIUM 139 MMOL/L (135-145); eGFR > 90 ML/MIN
--- NOTE | 2019-07-29 19:14 | NUR ---
Initial: Pt admit with acute DKA with hx T1DM, current A1c 11.4 which is up from 9.5 in July 2018 per records. Pt seen at bedside with mother present. Pt reports he takes his insulin per rx and that he has been trying to get an insulin pump. Pt states he is unsure why his BG levels became so elevated although believes it might be r/t having the flu. Pt states he checks his BG levels 3-4 times a day and sees an MD a few times a year. Pt denies any questions about DM management at this time. Written DM education with referral to outpatient DM class and RD contact information provided. Pt currently NPO and reports a good appetite stating that he wasn't eating for about four days RANCH RIDER d/t N/V however N/V has resolved. Pt denies food allergies or difficulty chewing/swallowing. Documented LBM is 07/28 however pt reports his LBM might have been 5-6 days ago; pt receiving routine Colace. Will continue to follow closely. Recommendations: 1) Advance to low fiber CHO controlled diet as medically indicated 2) Routine bowel care 3) Wt per rx Addendum: 07/29/19 at [address] Amended: Links added.
[2019-07-29] MEDS ORDERED: Potassium Cl inj 20 MEQ in dextrose 5%-1/2 normal saline 990 ML IV SCH (19:20)
--- NOTE | 2019-07-29 19:22 | NUR ---
Verbal orders received from Dr. Negro to discontinue D10 1/2 NS c 20 mEq K and insulin gtt infusing at 1 unit/hr; 10 unit SQ insulin administered per provider order. Will start q2hr accuchecks at 1999. Awaiting results from 1899 BMP. Will continue to monitor LOC.
--- NOTE | 2019-07-29 19:22 | NUR ---
Patient in room PCU 3014b. I have received report from NILE Llamas and had the opportunity to ask questions and assume patient care.
[2019-07-29] MEDS: lactobacillus rhamnosus 10,000 MMU CELLS/CAPSULE PO SCH (20:19)
--- NOTE | 2019-07-29 20:42 | NUR ---
PAGER ID: [phone] MESSAGE: Ext. [phone], NILE Steven. Patient in 3014b. Admitted for DKA. Insulin drip off at 1999. Patient remains NPO but sugars are at 133 and trending down. D5 1/2 NS c 20 K running at 125. Do you feed patient? No orders to eat until morning.
--- NOTE | 2019-07-29 20:44 | NUR ---
Telephone order per [facility] hospitalist, Dr. Joseph, to start feeding patient on CC diet.
[2019-07-29] MEDS ORDERED: potassium CL 20mEq in D5-1/2NS 1,000 ML IV SCH (22:47)
[2019-07-29 23:00] VITALS: BP 128/90
[2019-07-29] MEDS ORDERED: glucagon, human recombinant 1mg kit SUBCUT PRN (23:45)
[2019-07-29] MEDS ORDERED: MESSAGE TO PHARMACY PO ONE (23:45)
[2019-07-29] MEDS ORDERED: dextrose ORAL solution 15 GM/59 ML bottle PO PRN ×2 (23:45)
[2019-07-29] MEDS ORDERED: dextrose 50%-water 50ml dispensing syringe IV PRN ×2 (23:45)
--- NOTE | 2019-07-30 00:44 | NUR ---
Patient states IV 10 mEq K infusing at 100 mL/hr very irritating to vein. Patient is eating and tolerating fluids and plain foods. 2/4 bags given per protocol. Will give 20 mEq K DUR x1 and continue to monitor lab values.
--- NOTE | 2019-07-30 01:00 | NUR ---
First dose K Dur Administered but did not scan.
--- NOTE | 2019-07-30 02:35 | NUR ---
PAGER ID: [phone] MESSAGE: Ext. [phone], NILE Steven. Pt in 9921M. Insulin gtt dc'd at 07/29. D51/ NS c 20 K running at 125 mL/hr. Midnight BG 125 just now 194. Pt is eating. Would you like to decrease fluids?
[2019-07-30 03:00] VITALS: BP 103/60
[2019-07-30 05:11] LABS: BASOPHILS % (AUTO) 0.4 % (0-1); EOSINOPHILS # (AUTO) 0.1 X10'3 (0-0.9); EOSINOPHILS % (AUTO) 1.6 % (0-6); HEMATOCRIT 30.4 % (42.0-52.0); HEMOGLOBIN 10.2 g/dl (14.0-17.9); LYMPHOCYTES # (AUTO) 1.9 X10'3 (1.1-4.8); LYMPHOCYTES % (AUTO) 21.6 % (21-51); MEAN CORPUSCULAR HEMOGLOBIN 27.7 PG (27.0-31.0); MEAN CORPUSCULAR HGB CONC 33.5 g/dL (33.0-36.5); MEAN CORPUSCULAR VOLUME 82.7 FL (78-98); MEAN PLATELET VOLUME 8.5 FL (7.4-10.4); MONOCYTES # (AUTO) 0.5 X10'3 (0-0.9); MONOCYTES % (AUTO) 6.1 % (2-12); NEUTROPHILS # (AUTO) 6.3 X10'3 (1.8-7.7); NEUTROPHILS % (AUTO) 70.3 % (42-75); PLATELET COUNT 265 X10'3 (140-440); RED BLOOD COUNT 3.68 X10'6 (4.70-6.10); RED CELL DISTRIBUTION WIDTH 15.9 % (11.5-14.5)
[2019-07-30 05:33] LABS: ALANINE AMINOTRANSFERASE 55 U/L (12-78); ALBUMIN 2.4 G/DL (3.4-5.0); ALBUMIN/GLOBULIN RATIO 0.8 (1.1-1.5); ALKALINE PHOSPHATASE 74 IU/L (46-116); ANION GAP 6 (8-16); ASPARTATE AMINO TRANSFERASE 60 U/L (10-37); BILIRUBIN,TOTAL 0.3 MG/DL (0.1-1.0); BLOOD UREA NITROGEN 4 MG/DL (7-18); BUN/CREATININE RATIO 5.6 (5.4-32.0); CALCIUM 7.2 MG/DL (8.5-10.1); CHLORIDE 108 MMOL/L (99-107); CREATININE 0.71 MG/DL (0.60-1.10); GLUCOSE 249 MG/DL (70-104); MAGNESIUM 2.1 MG/DL (1.5-2.4); POTASSIUM 3.8 MMOL/L (3.5-5.1); SODIUM 137 MMOL/L (135-145); TOTAL CARBON DIOXIDE 22.9 MMOL/L (24-32); TOTAL PROTEIN 5.3 G/DL (6.4-8.2); eGFR > 90 ML/MIN
--- NOTE | 2019-07-30 06:20 | NUR ---
Patient in room PCU 3014. I have received report from Maurizio DOWD and had the opportunity to ask questions and assume patient care.
[2019-07-30 06:30] VITALS: BP 122/86
--- NOTE | 2019-07-30 06:34 | NUR ---
Correction 20 mEq K DUR PO x2
--- NOTE | 2019-07-30 06:35 | NUR ---
Problems reprioritized. Patient report given, questions answered & plan of care reviewed with NILE Llamas.
[2019-07-30 06:54] LABS: PHOSPHORUS 2.2 MG/DL (2.3-4.5)
[2019-07-30] MEDS: docusate sod 100mg capsule PO SCH (07:13)
[2019-07-30] MEDS: lactobacillus rhamnosus 10,000 MMU CELLS/CAPSULE PO SCH (07:13)
[2019-07-30] MEDS: pantoprazole 40mg Tablet.DR PO SCH (07:13)
[2019-07-30] MEDS: piperacillin/tazo 3.375gm/50ml 50 ML IV SCH ×2 (07:13→15:47)
[2019-07-30] MEDS: K and/or MAG REPLACEMENT MC SCH (07:14)
[2019-07-30] MEDS: heparin, porcine 5000 units/ml vial SQ SCH (07:14)
--- NOTE | 2019-07-30 07:31 | NUR ---
Paged hospitalist, "padmini [phone]- Arnulfo Bryant- please call radha re: am blood glucose and insulin administration" Waiting on callback
[2019-07-30] MEDS ORDERED: insulin Lispro (HumaLOG) vial - multi-dose SQ ONE (07:35)
[2019-07-30] MEDS: insulin Lispro (HumaLOG) vial - multi-dose SQ SCH ×3 (08:20→18:51)
[2019-07-30 11:00] VITALS: BP 125/81
--- NOTE | 2019-07-30 13:24 | NUR ---
Paged RT r/t incomplete ABG, they'll be coming to do it soon.
[2019-07-30 14:10] LABS: ABG BASE EXCESS -4.1 mmol/L (-2.0-3.0); ABG HCO3 20.2 mmol/L (22.0-26.0); ABG OXYGEN SATURATION 82.8 % (95-98); ABG PH (T) 7.391 (7.350-7.450); ABG PO2 (T) 41.9 mmHg (83-108); ALLEN'S TEST Positive; FCOHb 0.3 % (0.5-1.5); FMetHb 0.1 % (0.3-1.12); FO2Hb 82.5 % (94-100); TOTAL HEMOGLOBIN 11.5 G/dl (14.0-17.9)
[2019-07-30 15:00] VITALS: BP 131/90
--- NOTE | 2019-07-30 17:08 | NUR ---
Dr. Negro at bedside, going to discharge patient and he is to follow up on friday with his primary care provider
--- NOTE | 2019-07-30 17:50 | NUR ---
Discussed discharge instructions with patient, verbalized understanding. Eager to go home. Called his ride to come get him in 1 hour. IV's and tele to be dc'd on noc shift nurse. Patient stable and will follow up on friday with PCP.
--- NOTE | 2019-07-30 18:10 | NUR ---
Problems reprioritized. Patient report given, questions answered & plan of care reviewed with BENITEZ DOWD.
--- NOTE | 2019-07-30 18:25 | NUR ---
Patient in room PCU 3014. I have received report from Muriel DOWD and had the opportunity to ask questions and assume patient care.
--- NOTE | 2019-07-30 18:56 | NUR ---
Pt DC. Pt alert and oriented, lungs clear, pulses present in all extremities no wounds, no complaint of pain, no signs of distress. Pt given DC packet including follow up instructions and next medication times and dosages, medicated with insulin per protocol for dinner blood sugar, IV lines were removed, all questions answered for pt and family, pt in stable condition, ambulated to mother's car at front of hospital, DC time 1856.
[2019-07-30] MEDS ORDERED: insulin glargine (Lantus) pen - multi-dose SQ SCH (21:00)
== END 2019-07-30 18:58 | disposition home or self-care (01) | DRG 639 ==
LOC: ER 15:50 → ED HOLD 18:20 → EDBEDREQ 19:02 → PCU 3S 19:45
PROVIDERS: ADMIT Internal Medicine; ATTEND Internal Medicine
DX: E10.10 Type 1 diabetes mellitus with ketoacidosis without coma (principal); F17.290 Nicotine dependence, other tobacco product, uncomplicated; G89.4 Chronic pain syndrome; Z79.4 Long term (current) use of insulin; Z86.14 Personal history of Methicillin resistant Staphylococcus aureus infection; E87.6 Hypokalemia; E83.42 Hypomagnesemia; M54.9 Dorsalgia, unspecified; F12.90 Cannabis use, unspecified, uncomplicated; Z79.899 Other long term (current) drug therapy
CPT/HCPCS: 36415; 36600; 71045; 74176; 76937; 80048; 80053; 80061; 81001; 82803; 82948; 83036; 83605; 83690; 83735; 84100; 84145; 85018; 85025; 87040; 87081; 96361; 96374; 96375; 99285; C9113; G0378; J0780; J1200; J1644; J1815; J2060; J2270; J2405; J2543; J3475; J3480; J7030; J7060

== ENCOUNTER 2020-03-02 23:57 | Emergency (ER) | payer BC ==
[~2020-03-02] VITALS: Ht 182.9 cm; Wt 63.3 kg
[~2020-03-02 23:57] MED LIST changes: +CYCL-1 PO; -DOXY100C2 PO; -GABA600T13 PO
[2020-03-03] MEDS ORDERED: metoclopramide 5 mg/ml inj IV ONE (00:25)
[2020-03-03] MEDS ORDERED: normal saline 1000ml 1,000 ML IV ONE ×2 (00:25→03:10)
[2020-03-03 00:31] LABS: BASOPHILS % (AUTO) 0.2 % (0-1); EOSINOPHILS % (AUTO) 0.1 % (0-6); HEMOGLOBIN 11.8 g/dl (14.0-17.9); LYMPHOCYTES # (AUTO) 0.7 X10'3 (1.1-4.8); LYMPHOCYTES % (AUTO) 3.8 % (21-51); MEAN CORPUSCULAR HEMOGLOBIN 25.1 PG (27.0-31.0); MEAN CORPUSCULAR HGB CONC 31.9 g/dL (33.0-36.5); MEAN CORPUSCULAR VOLUME 78.8 FL (78-98); MEAN PLATELET VOLUME 7.7 FL (7.4-10.4); MONOCYTES # (AUTO) 1.3 X10'3 (0-0.9); NEUTROPHILS % (AUTO) 88.9 % (42-75); PLATELET COUNT 490 X10'3 (140-440); RED BLOOD COUNT 4.69 X10'6 (4.70-6.10); RED CELL DISTRIBUTION WIDTH 15.6 % (11.5-14.5); WHITE BLOOD COUNT 19.1 X10'3 (4.5-11.0)
[2020-03-03 00:33] LABS: CLARITY,URINE CLEAR (Clear); COLOR,URINE YELLOW (Yellow); GLUCOSE, URINE >=1000 mg/dl (Neg); KETONES,URINE >=80 mg/dl (Neg); LEUKOCYTE ESTERASE ,URINE NEGATIVE (Neg); NITRITES, URINE NEGATIVE (Neg); OCCULT BLOOD,URINE NEGATIVE (Neg); PH,URINE 5.5 (4.8-8.0); PROTEIN,URINE NEGATIVE (Neg); UROBILINOGEN,URINE 0.2 E.U/dL (0.2-1.0)
[2020-03-03 00:34] LABS: UA COLLECTION TYPE VOIDED
[2020-03-03 00:46] LABS: BACTERIA,URINE NONE SEEN /HPF (Neg); RBC,URINE NONE SEEN /HPF (0-2); SQUAMOUS EPITHELIAL CELL,UR FEW /LPF (FEW); WBC,URINE 0-4 /HPF (0-4)
[2020-03-03 00:46] LABS: ALANINE AMINOTRANSFERASE 47 U/L (12-78); ALBUMIN 2.8 G/DL (3.4-5.0); ALBUMIN/GLOBULIN RATIO 0.8 (1.1-1.5); ALKALINE PHOSPHATASE 84 IU/L (46-116); ANION GAP 16 (8-16); ASPARTATE AMINO TRANSFERASE 41 U/L (10-37); BILIRUBIN,TOTAL 0.3 MG/DL (0.1-1.0); BLOOD UREA NITROGEN 24 MG/DL (7-18); BUN/CREATININE RATIO 16.8 (5.4-32.0); CALCIUM 7.8 MG/DL (8.5-10.1); CHLORIDE 104 MMOL/L (99-107); CREATININE 1.43 MG/DL (0.60-1.10); GLUCOSE 95 MG/DL (70-104); LIPASE < 50 U/L (73-393); POTASSIUM 3.3 MMOL/L (3.5-5.1); SODIUM 139 MMOL/L (135-145); TOTAL CARBON DIOXIDE 19.4 MMOL/L (24-32); TOTAL PROTEIN 6.4 G/DL (6.4-8.2); eGFR 58 ML/MIN
[2020-03-03] MEDS ORDERED: LORazepam 2 mg/ml vial IV ONE (01:30)
[2020-03-03] MEDS ORDERED: normal saline 1000ML IV soln IVB ONE (01:30)
[2020-03-03] MEDS ORDERED: METO-292 PO (03:45)
[2020-03-03 04:11] VITALS: BP 118/76
== END 2020-03-03 04:05 | disposition home or self-care (01) ==
LOC: ER 23:58
DX: K31.84 Gastroparesis (principal); R11.2 Nausea with vomiting, unspecified; E86.0 Dehydration; R61 Generalized hyperhidrosis; E11.9 Type 2 diabetes mellitus without complications; G89.29 Other chronic pain; Z86.69 Personal history of other diseases of the nervous system and sense organs; Z86.14 Personal history of Methicillin resistant Staphylococcus aureus infection; Z98.890 Other specified postprocedural states; Z79.4 Long term (current) use of insulin; Z79.899 Other long term (current) drug therapy
CPT/HCPCS: 36415; 80053; 81001; 82948; 83690; 85025; 96374; 96375; 99285; J2060; J2765; J7030

== ENCOUNTER 2020-05-10 18:24 | Inpatient (IN) | payer BC ==
[~2020-05-10] VITALS: Ht 182.9 cm; Wt 68.2 kg
[~2020-05-10 18:24] MED LIST changes: +METO-292 PO
[2020-05-10] MEDS ORDERED: sodium phosphate inj. 30 MMOL in dextrose 5%-water 250 ML IV PRN (18:55)
[2020-05-10] MEDS ORDERED: Insulin Reg/NS 100units/100mL 100 ML IV SCH (18:55)
[2020-05-10] MEDS ORDERED: metoclopramide 5 mg/ml inj IV ONE ×2 (18:55→21:30)
[2020-05-10] MEDS ORDERED: LORazepam 2 mg/ml vial IV ONE ×2 (18:55→21:30)
[2020-05-10] MEDS ORDERED: sodium bicarbonate (8.4%) inj. 100 MEQ in dextrose 5% water 500ml 500 ML IV PRN (18:55)
[2020-05-10] MEDS ORDERED: normal saline 1000ML IV soln IV ONE (18:55)
[2020-05-10] MEDS ORDERED: Neutra Phos packet PO PRN (18:55)
[2020-05-10] MEDS ORDERED: potassium Cl 20 mEq SR tablet PO PRN ×2 (18:55)
[2020-05-10] MEDS ORDERED: insulin regular, human U-100 3ml vial - multi-dose IV PRN (18:55)
[2020-05-10] MEDS ORDERED: diphenhydrAMINE 50 mg/ml inj IV ONE (18:55)
[2020-05-10] MEDS ORDERED: sodium phosphate inj. 15 MMOL in dextrose 5%-water 250 ML IV PRN (18:55)
[2020-05-10] MEDS ORDERED: potassium CL 10mEq/100ml bag 100 ML IV PRN ×2 (18:55)
[2020-05-10] MEDS ORDERED: sodium bicarbonate (8.4%) inj. 50 MEQ in dextrose 5% water 500ml 250 ML IV PRN (18:55)
[2020-05-10] MEDS ORDERED: potassium CL 20mEq in D5-1/2NS 1,000 ML IV PRN (18:55)
[2020-05-10] MEDS: normal saline 1000ml 1,000 ML IV SCH (19:01)
[2020-05-10 19:21] LABS: EOSINOPHILS % (AUTO) 0 % (0-6)
[2020-05-10 19:23] LABS: BASOPHILS # (AUTO) 0.1 X10'3 (0-0.2); BASOPHILS % (AUTO) 0.3 % (0-1); HEMATOCRIT 42.6 % (42.0-52.0); HEMOGLOBIN 13.2 g/dl (14.0-17.9); LYMPHOCYTES # (AUTO) 0.9 X10'3 (1.1-4.8); MEAN CORPUSCULAR HEMOGLOBIN 24.9 PG (27.0-31.0); MEAN CORPUSCULAR VOLUME 80.5 FL (78-98); MEAN PLATELET VOLUME 8.1 FL (7.4-10.4); MONOCYTES # (AUTO) 0.6 X10'3 (0-0.9); NEUTROPHILS # (AUTO) 20.2 X10'3 (1.8-7.7); NEUTROPHILS % (AUTO) 92.7 % (42-75); PLATELET COUNT 844 X10'3 (140-440); RED CELL DISTRIBUTION WIDTH 16.2 % (11.5-14.5); WHITE BLOOD COUNT 21.8 X10'3 (4.5-11.0)
[2020-05-10 19:32] LABS: ALANINE AMINOTRANSFERASE 48 U/L (12-78); ALBUMIN 3.1 G/DL (3.4-5.0); ALBUMIN/GLOBULIN RATIO 0.7 (1.1-1.5); ALKALINE PHOSPHATASE 134 IU/L (46-116); ANION GAP 27 (8-16); ASPARTATE AMINO TRANSFERASE 55 U/L (10-37); BILIRUBIN,TOTAL 0.5 MG/DL (0.1-1.0); BLOOD UREA NITROGEN 18 MG/DL (7-18); BUN/CREATININE RATIO 15.4 (5.4-32.0); CHLORIDE 98 MMOL/L (99-107); CREATININE 1.17 MG/DL (0.60-1.10); GLUCOSE 438 MG/DL (70-104); LIPASE < 50 U/L (73-393); MAGNESIUM 1.9 MG/DL (1.5-2.4); PHOSPHORUS 2.9 MG/DL (2.3-4.5); POTASSIUM 4.4 MMOL/L (3.5-5.1); SODIUM 136 MMOL/L (135-145); TOTAL PROTEIN 7.8 G/DL (6.4-8.2); eGFR 73 ML/MIN
[2020-05-10 19:39] LABS: TOTAL CARBON DIOXIDE 11.3 MMOL/L (24-32)
[2020-05-10] MEDS ORDERED: K and/or MAG REPLACEMENT MC SCH (20:00)
[2020-05-10 20:34] LABS: CLARITY,URINE CLEAR (Clear); COLOR,URINE YELLOW (Yellow); GLUCOSE, URINE 500 mg/dl (Neg); KETONES,URINE >=80 mg/dl (Neg); LEUKOCYTE ESTERASE ,URINE NEGATIVE (Neg); NITRITES, URINE NEGATIVE (Neg); OCCULT BLOOD,URINE NEGATIVE (Neg); PH,URINE 5.5 (4.8-8.0); PROTEIN,URINE NEGATIVE (Neg); UA COLLECTION TYPE URINAL; UROBILINOGEN,URINE 0.2 E.U/dL (0.2-1.0)
[2020-05-10] MEDS ORDERED: ondansetron/PF 4mg/2ml inj IV STA (20:45)
[2020-05-10] MEDS ORDERED: morphine 4 MG/ML inj SYRINge IV ONE (21:30)
[2020-05-10 21:41] LABS: ABG BASE EXCESS -13.7 mmol/L (-2.0-2.0); ABG HCO3 9.7 mmol/L (22.0-26.0); ABG OXYGEN SATURATION 97.9 % (94-97); ABG PO2 (T) 105.1 mmHg (75.0-100.0); ALLEN'S TEST POSITIVE; FCOHb 0.3 % (0.0-3.9); FMetHb 0.3 % (0.0-1.5); FO2Hb 97.3 % (94-97); PATIENT TEMPERATURE 36.6
[2020-05-10] MEDS ORDERED: pantoprazole 40 MG vial IV ONE (21:45)
[2020-05-11] MEDS ORDERED: magnesium 2GM in 50ml NS 50 ML IV PRN
[2020-05-11] MEDS ORDERED: potassium Cl 20 mEq SR tablet PO PRN
[2020-05-11] MEDS ORDERED: normal saline 1000ml 1,000 ML IV SCH
[2020-05-11] MEDS ORDERED: ondansetron/PF 4mg/2ml inj IV PRN
[2020-05-11] MEDS ORDERED: magnesium Cl slow-release 64mg tablet PO PRN
[2020-05-11] MEDS ORDERED: magnesium 4gm in 100ml NS 100 ML IV PRN
[2020-05-11] MEDS ORDERED: potassium CL 10mEq/100ml bag 100 ML IV PRN ×2
[2020-05-11 00:36] LABS: ALBUMIN 2.2 G/DL (3.4-5.0); ANION GAP 11 (8-16); BLOOD UREA NITROGEN 14 MG/DL (7-18); BUN/CREATININE RATIO 13.9 (5.4-32.0); CALCIUM 7.1 MG/DL (8.5-10.1); CHLORIDE 107 MMOL/L (99-107); CREATININE 1.01 MG/DL (0.60-1.10); GLUCOSE 99 MG/DL (70-104); POTASSIUM 3.2 MMOL/L (3.5-5.1); SODIUM 137 MMOL/L (135-145); TOTAL CARBON DIOXIDE 19.4 MMOL/L (24-32); eGFR 86 ML/MIN
[2020-05-11] MEDS: normal saline 1000ml 1,000 ML IV SCH (00:51)
--- NOTE | 2020-05-11 01:01 | NUR ---
ACCUCHECK AT 0003 = 81. ERNST Riddle RN, RECEIVED ORDER FOR DR. LOBO TO CHANGE IVF TO D10 PER PROTOCOL AND REPEAT BMP. CO2 NOW 19.4 ANION GAP 11.
--- NOTE | 2020-05-11 01:22 | NUR ---
DR PLATA UPDATED OF PTS 8 OUT OF 10 PAIN TO HIS ABDOMEN, HIPS, BACK AND JAW AND THAT HE IS NAUSEAUS. VERBAL RECEIVED FOR TOX SCREEN ON URINE AND SHE WILL THEN ORDER ANOTHER DOSE OF MORPHINE. PTS IVF TO BE CHANGED TO D10 1/2 NS WITH 20 KJ PER PROTOCOL. LAST ACCUCHECK 97. AWAITING IPA. PT PLACED ON HOSPITAL BED AND WILL BE ADMIT HOLD IN ER THE REMAINDER OF THE NIGHT.
[2020-05-11 01:33] LABS: URINE AMPHETAMINE SCREEN NEGATIVE (Neg); URINE BARBITUATE SCREEN NEGATIVE (Neg); URINE BENZODIAZEPINES SCREEN NEGATIVE (Neg); URINE CANNABINOID SCREEN POSITIVE (Neg); URINE COCAINE SCREEN NEGATIVE (Neg); URINE METHADONE SCREEN NEGATIVE (Neg); URINE OPIATE SCREEN NEGATIVE (Neg); URINE PHENCYCLIDINE SCREEN NEGATIVE (Neg)
[2020-05-11] MEDS ORDERED: morphine 4 MG/ML inj SYRINge IV ONE (01:35)
[2020-05-11] MEDS: POTASSIUM CHLORIDE IV SCH ×4 (01:46→09:08)
[2020-05-11] MEDS: DEXTROSE IV SCH ×4 (01:46→09:08)
[2020-05-11] MEDS: SODIUM CHLORIDE IV SCH ×4 (01:46→09:08)
[2020-05-11] MEDS: [UNRECOGNIZED DRUG - OTHER] IV SCH ×4 (01:46→09:08)
[2020-05-11] MEDS ORDERED: AMOX500C4 PO (01:55)
--- NOTE | 2020-05-11 02:45 | NUR ---
Dr. Sims called with updated that Pts accucheck now 82. D5 1/2 ns with 20 increased to 200 ml/hr , Pt continues on 5 u /hr insulin. Verbal received to decrease insulin gtt to 2/u hr and continue current fluids. In the next 2-3 hrs, if accuchecks are stable, she will transition Pt to lantus sq 10 u.
--- NOTE | 2020-05-11 05:27 | NUR ---
Dr. Ricks called to request tylenol for Pt, he has PINEDA 7 out of 10. No nausea. Verbal received for tylenol. Accucheck 152, d10 1/2 ns with 20 k infusing at 200/hr, insulin continues at 2 u hr.
[2020-05-11] MEDS ORDERED: acetaminophen 325mg tablet PO ONE (05:30)
[2020-05-11 05:44] LABS: BASOPHILS # (AUTO) 0.1 X10'3 (0-0.2); BASOPHILS % (AUTO) 0.6 % (0-1); EOSINOPHILS % (AUTO) 0.2 % (0-6); HEMATOCRIT 31.7 % (42.0-52.0); LYMPHOCYTES % (AUTO) 9.7 % (21-51); MEAN CORPUSCULAR HEMOGLOBIN 24.8 PG (27.0-31.0); MEAN CORPUSCULAR HGB CONC 31.5 g/dL (33.0-36.5); MEAN CORPUSCULAR VOLUME 78.8 FL (78-98); MEAN PLATELET VOLUME 7.5 FL (7.4-10.4); MONOCYTES # (AUTO) 1.6 X10'3 (0-0.9); MONOCYTES % (AUTO) 7.7 % (2-12); NEUTROPHILS # (AUTO) 17.1 X10'3 (1.8-7.7); NEUTROPHILS % (AUTO) 81.8 % (42-75); PLATELET COUNT 587 X10'3 (140-440); RED BLOOD COUNT 4.03 X10'6 (4.70-6.10); RED CELL DISTRIBUTION WIDTH 15.9 % (11.5-14.5); WHITE BLOOD COUNT 20.9 X10'3 (4.5-11.0)
[2020-05-11 06:01] LABS: ALBUMIN 2.3 G/DL (3.4-5.0); ANION GAP 11 (8-16); BLOOD UREA NITROGEN 12 MG/DL (7-18); BUN/CREATININE RATIO 14.1 (5.4-32.0); CALCIUM 6.9 MG/DL (8.5-10.1); CHLORIDE 105 MMOL/L (99-107); CREATININE 0.85 MG/DL (0.60-1.10); GLUCOSE 148 MG/DL (70-104); MAGNESIUM 1.6 MG/DL (1.5-2.4); PHOSPHORUS 2.1 MG/DL (2.3-4.5); POTASSIUM 3.3 MMOL/L (3.5-5.1); SODIUM 136 MMOL/L (135-145); TOTAL CARBON DIOXIDE 19.8 MMOL/L (24-32); eGFR > 90 ML/MIN
--- NOTE | 2020-05-11 06:57 | NUR ---
Patient in room ED 13. I have received report from Cher DOWD and had the opportunity to ask questions and assume patient care.
[2020-05-11 07:20] VITALS: BP 114/73
--- NOTE | 2020-05-11 07:30 | NUR ---
Patient in room PCU 3011 admitted from ED. I have received report from Cher DOWD and had the opportunity to ask questions and assume patient care. Pt in bed resting, belongings w/ pt, will continue to monitor.
[2020-05-11] MEDS: K and/or MAG REPLACEMENT MC SCH ×2 (08:00→20:00)
--- NOTE | 2020-05-11 08:00 | NUR ---
Increased D10 1/2 NS w/ 20K to 250 due to BS of 139, will continue to monitor.
[2020-05-11] MEDS ORDERED: Potassium Cl inj 20 MEQ in dextrose 5%-1/2 normal saline 1,000 ML IV PRN (08:15)
[2020-05-11] MEDS: potassium Cl 20 mEq SR tablet PO PRN ×2 (09:08→16:05)
--- NOTE | 2020-05-11 10:31 | NUR ---
PAGER ID: [phone] MESSAGE: [phone] Arnulfo Bryant: OTILIA BS is 134, pt is on max rate of 250 for D10 1/2 NS w/ 20K, insulin is at 2, do you want to change any of these to maintain BS around 150-200? thanks faye [phone]
[2020-05-11 11:00] VITALS: BP 109/66
--- NOTE | 2020-05-11 11:01 | NUR ---
PAGER ID: [phone] MESSAGE: [phone] Arnulfo Bryant: OTILIA Pt bs is stable at 186, no need to adjust anything. thanks faye
[2020-05-11 11:21] LABS: ALBUMIN 2.1 G/DL (3.4-5.0); ANION GAP 7 (8-16); BLOOD UREA NITROGEN 10 MG/DL (7-18); BUN/CREATININE RATIO 11.4 (5.4-32.0); CALCIUM 6.7 MG/DL (8.5-10.1); CHLORIDE 109 MMOL/L (99-107); CREATININE 0.88 MG/DL (0.60-1.10); GLUCOSE 187 MG/DL (70-104); POTASSIUM 3.3 MMOL/L (3.5-5.1); SODIUM 138 MMOL/L (135-145); TOTAL CARBON DIOXIDE 21.6 MMOL/L (24-32); eGFR > 90 ML/MIN
--- NOTE | 2020-05-11 12:13 | NUR ---
received orders to initiate hyperglycemia protocol and to stop insulin drip 30 mins after administering subq insulin when patient eats, ordered patient carb control tray, pt states he will be able to tolerate solid food.
[2020-05-11] MEDS ORDERED: dextrose ORAL solution 15 GM/59 ML bottle PO PRN ×2 (12:15)
[2020-05-11] MEDS ORDERED: MESSAGE TO PHARMACY PO ONE (12:15)
[2020-05-11] MEDS ORDERED: dextrose 50%-water 50ml dispensing syringe IV PRN ×2 (12:15)
[2020-05-11] MEDS ORDERED: glucagon, human recombinant 1mg kit SUBCUT PRN (12:15)
[2020-05-11] MEDS: insulin Lispro (HumaLOG) vial - multi-dose SQ SCH ×2 (13:45→19:15)
[2020-05-11] MEDS: cyclobenzaprine 10mg tablet PO SCH ×2 (13:46→21:19)
[2020-05-11] MEDS: amoxicillin 250mg capsule PO SCH ×3 (13:46→21:19)
--- NOTE | 2020-05-11 14:53 | NUR ---
DM consult. Pt presented to ED with n/v/abdominal pain 3-4 days, type 1 DM since 21 years old. Recent tooth infection 05/04 per H&P, reporting out of control blood glucose d/t this. Admitted with DKA per physician. Last A1c 9.5% 07/28/19; During that admission pt reported to DANELLE that he take his insulin per rx and that he has been trying to get an insulin pump; stated he states he checks his BG levels 3-4 times a day and sees an MD a few times a year. Attempted two bedside visits to provide written DM education handout with verbal review; pt was with other disciplines at that time. Will provide education prior to discharge. Recommend: 1. advance diet as medically indicated to carb controlled 2. weight per rx Addendum: 05/11/20 at [address] Amended: Links added.
[2020-05-11 15:00] VITALS: BP 126/78
--- NOTE | 2020-05-11 15:14 | NUR ---
PAGER ID: [phone] MESSAGE: [phone] Arnulfo Bryant: Pt is requesting tylenol for head ache, his HR has been elevated to the 100's, he states he can feel it and is discomforting, do you want to start IVF? thanks faye [phone]
--- NOTE | 2020-05-11 15:17 | NUR ---
received orders to start NS + 20K @ 125cc/hr and Tylenol 650mg PRN for pain per dr. ambrose
[2020-05-11] MEDS ORDERED: acetaminophen 325mg tablet PO PRN (15:20)
[2020-05-11] MEDS: potassium Cl 20mEq in NS 1,000 ML IV SCH ×2 (16:05→23:20)
[2020-05-11 17:20] LABS: ALBUMIN 2.2 G/DL (3.4-5.0); ANION GAP 7 (8-16); BLOOD UREA NITROGEN 7 MG/DL (7-18); BUN/CREATININE RATIO 10.6 (5.4-32.0); CALCIUM 7.1 MG/DL (8.5-10.1); CHLORIDE 107 MMOL/L (99-107); CREATININE 0.66 MG/DL (0.60-1.10); GLUCOSE 193 MG/DL (70-104); POTASSIUM 3.5 MMOL/L (3.5-5.1); SODIUM 136 MMOL/L (135-145); TOTAL CARBON DIOXIDE 22.5 MMOL/L (24-32); eGFR > 90 ML/MIN
[2020-05-11 18:00] VITALS: BP 142/90
--- NOTE | 2020-05-11 18:13 | NUR ---
Problems reprioritized. Patient report given, questions answered & plan of care reviewed with Caren DOWD.
--- NOTE | 2020-05-11 18:30 | NUR ---
Patient in room PCU 3011. I have received report from Alden DOWD and had the opportunity to ask questions and assume patient care.
[2020-05-11] MEDS ORDERED: insulin glargine (Lantus) pen - multi-dose SQ SCH (21:00)
[2020-05-11 22:00] VITALS: BP 120/67
--- NOTE | 2020-05-11 22:24 | NUR ---
PAGER ID: [phone] MESSAGE: Arnulfo Bryant 30M admitted with DKA, pt is not on the GTT at this time pt is requesting something to help with sleep thank you Caren DOWD [phone]
[2020-05-11] MEDS ORDERED: Melatonin 3mg tablet PO PRN (22:25)
[2020-05-12 02:00] VITALS: BP 122/75
[2020-05-12 05:48] LABS: BASOPHILS % (AUTO) 0.5 % (0-1); EOSINOPHILS # (AUTO) 0.2 X10'3 (0-0.9); LYMPHOCYTES # (AUTO) 2.3 X10'3 (1.1-4.8); LYMPHOCYTES % (AUTO) 23.3 % (21-51); MEAN CORPUSCULAR HEMOGLOBIN 25.5 PG (27.0-31.0); MEAN CORPUSCULAR HGB CONC 32.3 g/dL (33.0-36.5); MEAN CORPUSCULAR VOLUME 78.9 FL (78-98); MEAN PLATELET VOLUME 7.9 FL (7.4-10.4); MONOCYTES # (AUTO) 0.6 X10'3 (0-0.9); MONOCYTES % (AUTO) 6.7 % (2-12); NEUTROPHILS # (AUTO) 6.5 X10'3 (1.8-7.7); NEUTROPHILS % (AUTO) 67.5 % (42-75); PLATELET COUNT 485 X10'3 (140-440); RED BLOOD COUNT 3.54 X10'6 (4.70-6.10); RED CELL DISTRIBUTION WIDTH 16.5 % (11.5-14.5); WHITE BLOOD COUNT 9.7 X10'3 (4.5-11.0)
[2020-05-12 06:00] VITALS: BP 119/76
[2020-05-12 06:00] LABS: ALBUMIN 1.9 G/DL (3.4-5.0); ANION GAP 7 (8-16); BLOOD UREA NITROGEN 6 MG/DL (7-18); BUN/CREATININE RATIO 10.5 (5.4-32.0); CALCIUM 7.1 MG/DL (8.5-10.1); CHLORIDE 110 MMOL/L (99-107); CREATININE 0.57 MG/DL (0.60-1.10); GLUCOSE 162 MG/DL (70-104); MAGNESIUM 1.7 MG/DL (1.5-2.4); POTASSIUM 3.4 MMOL/L (3.5-5.1); SODIUM 138 MMOL/L (135-145); TOTAL CARBON DIOXIDE 20.8 MMOL/L (24-32); eGFR > 90 ML/MIN
--- NOTE | 2020-05-12 06:06 | NUR ---
Problems reprioritized. Patient report given, questions answered & plan of care reviewed with Alden DOWD.
--- NOTE | 2020-05-12 06:30 | NUR ---
Patient in room PCU 3011. I have received report from Caren DOWD and had the opportunity to ask questions and assume patient care.
[2020-05-12] MEDS ORDERED: pantoprazole 40mg Tablet.DR PO SCH (07:30)
[2020-05-12] MEDS: amoxicillin 250mg capsule PO SCH (07:39)
[2020-05-12] MEDS: cyclobenzaprine 10mg tablet PO SCH (07:40)
[2020-05-12] MEDS: potassium Cl 20mEq in NS 1,000 ML IV SCH (07:42)
[2020-05-12] MEDS: potassium Cl 20 mEq SR tablet PO PRN (08:38)
[2020-05-12] MEDS: K and/or MAG REPLACEMENT MC SCH (08:38)
[2020-05-12] MEDS: insulin Lispro (HumaLOG) vial - multi-dose SQ SCH (08:41)
[2020-05-12] MEDS ORDERED: POTA20TA10 PO (10:46)
[2020-05-12] MEDS ORDERED: PANT40TA54 PO (10:46)
--- NOTE | 2020-05-12 12:16 | NUR ---
Pt is stable for discharge per md orders, discharge instructions reviewed w/ pt and all questions answered, new med prescriptions faxed to [facility]il [facility]ar in [place] and confirmed via telephone, PIV dc intact, clean dry dressing in place, pt discharges to home at 1200, wheeled down to lobby with hospital staff to private vehicle w/ family member, all belongings w/ pt at time of discharge.
== END 2020-05-12 12:45 | disposition home or self-care (01) | DRG 638 ==
LOC: ER 18:25 → ED HOLD 23:58 → PCU 3S 05-11 07:31
PROVIDERS: ADMIT Internal Medicine; ATTEND Family Medicine
DX: E11.10 Type 2 diabetes mellitus with ketoacidosis without coma (principal); K92.0 Hematemesis; G89.29 Other chronic pain; M54.89 Other dorsalgia; F17.210 Nicotine dependence, cigarettes, uncomplicated; Z79.4 Long term (current) use of insulin; E87.6 Hypokalemia; K04.7 Periapical abscess without sinus
CPT/HCPCS: 36415; 36600; 71045; 80048; 80053; 80305; 81003; 82803; 82948; 83036; 83605; 83690; 83735; 84100; 84145; 85018; 85025; 87081; 93005; 96365; 96375; 99291; C9113; G0378; J1200; J1815; J2060; J2270; J2405; J2765; J3480; J7030

== ENCOUNTER 2020-08-08 15:42 | Inpatient (IN) | payer BC ==
[~2020-08-08] VITALS: Ht 185.4 cm; Wt 46.0 kg
[~2020-08-08 15:42] MED LIST changes: +AMOX500C4 PO; -METO-292 PO; +PANT40TA54 PO; +POTA20TA10 PO
[2020-08-08] MEDS ORDERED: normal saline 1000ml 1,000 ML IV ONE ×3 (15:50→19:45)
--- NOTE | 2020-08-08 16:09 | NUR ---
rt at bedside.
[2020-08-08] MEDS ORDERED: morphine 4 MG/ML inj SYRINge IV ONE (16:15)
[2020-08-08] MEDS ORDERED: metoclopramide 5 mg/ml inj IV ONE (16:15)
[2020-08-08 16:26] LABS: ABG OXYGEN SATURATION 98.1 % (94-97); ABG PO2 (T) 140.2 mmHg (75.0-100.0); ALLEN'S TEST POSITIVE; FCOHb 0.5 % (0.0-3.9); FMetHb 0.3 % (0.0-1.5); FO2Hb 97.3 % (94-97); TOTAL HEMOGLOBIN 12.2 G/dl (14.0-18.0)
[2020-08-08 16:26] LABS: BASOPHILS # (AUTO) 0.2 X10'3 (0-0.2); BASOPHILS % (AUTO) 0.5 % (0-1); EOSINOPHILS % (AUTO) 0 % (0-6); LYMPHOCYTES # (AUTO) 1.8 X10'3 (1.1-4.8); MEAN PLATELET VOLUME 8.9 FL (7.4-10.4); MONOCYTES # (AUTO) 1.1 X10'3 (0-0.9); MONOCYTES % (AUTO) 3.6 % (2-12); NEUTROPHILS # (AUTO) 27.8 X10'3 (1.8-7.7); NEUTROPHILS % (AUTO) 89.9 % (42-75); PLATELET COUNT 664 X10'3 (140-440)
[2020-08-08 16:28] LABS: CLARITY,URINE CLEAR (Clear); COLOR,URINE STRAW (Yellow); GLUCOSE, URINE 500 mg/dl (Neg); KETONES,URINE >=80 mg/dl (Neg); LEUKOCYTE ESTERASE ,URINE NEGATIVE (Neg); NITRITES, URINE NEGATIVE (Neg); OCCULT BLOOD,URINE SMALL (Neg); PH,URINE 5.5 (4.8-8.0); PROTEIN,URINE NEGATIVE (Neg); UROBILINOGEN,URINE 0.2 E.U/dL (0.2-1.0)
[2020-08-08 16:37] LABS: UA COLLECTION TYPE CLN CATCH MIDSTREAM
[2020-08-08] MEDS ORDERED: iohexol 300mg/ml 100ml inj. ONE (16:37)
[2020-08-08 16:39] LABS: ANION GAP 33 (8-16); BLOOD UREA NITROGEN 20 MG/DL (7-18); CALCIUM 8.7 MG/DL (8.5-10.1); CHLORIDE 98 MMOL/L (99-107); CREATININE 1.25 MG/DL (0.60-1.10); SODIUM 137 MMOL/L (135-145); eGFR 67 ML/MIN
[2020-08-08 16:42] LABS: TOTAL CARBON DIOXIDE 5.6 MMOL/L (24-32)
[2020-08-08 16:42] LABS: BACTERIA,URINE NONE SEEN /HPF (Neg); RBC,URINE 0-2 /HPF (0-2); SQUAMOUS EPITHELIAL CELL,UR NONE SEEN /LPF (FEW); WBC,URINE NONE SEEN /HPF (0-4)
[2020-08-08 16:43] LABS: GLUCOSE 676 MG/DL (70-104); POTASSIUM 5.2 MMOL/L (3.5-5.1)
[2020-08-08 17:10] LABS: HEMOGLOBIN 10.7 g/dl (14.0-17.9); MEAN CORPUSCULAR VOLUME 74.3 FL (78-98); RED BLOOD COUNT 4.44 X10'6 (4.70-6.10)
[2020-08-08] MEDS ORDERED: sodium phosphate inj. 15 MMOL in dextrose 5%-water 250 ML IV PRN ×2 (17:10→20:05)
[2020-08-08] MEDS ORDERED: sodium bicarbonate (8.4%) inj. 50 MEQ in dextrose 5% water 500ml 250 ML IV PRN ×2 (17:10→20:05)
[2020-08-08] MEDS ORDERED: potassium CL 20mEq in D5-1/2NS 1,000 ML IV PRN (17:10)
[2020-08-08] MEDS ORDERED: sodium phosphate inj. 30 MMOL in dextrose 5%-water 250 ML IV PRN ×2 (17:10→20:05)
[2020-08-08] MEDS ORDERED: potassium Cl 40MEQ/1/2NS 520ml 520 ML IV PRN ×4 (17:10→20:05)
[2020-08-08] MEDS ORDERED: potassium Cl 20 mEq SR tablet PO PRN ×3 (17:10→20:05)
[2020-08-08] MEDS ORDERED: Insulin Reg/NS 100units/100mL 100 ML IV SCH (17:10)
[2020-08-08] MEDS ORDERED: sodium bicarbonate (8.4%) inj. 100 MEQ in dextrose 5% water 500ml 500 ML IV PRN ×2 (17:10→20:05)
[2020-08-08] MEDS ORDERED: Neutra Phos packet PO PRN (17:10)
[2020-08-08] MEDS ORDERED: normal saline 1000ml 1,000 ML IV SCH (17:10)
[2020-08-08 17:11] LABS: MEAN CORPUSCULAR HEMOGLOBIN 24.2 PG (27.0-31.0); MEAN CORPUSCULAR HGB CONC 32.6 g/dL (33.0-36.5)
[2020-08-08 17:39] LABS: ANISOCYTOSIS 1+; LARGE PLATELETS FEW; PLATELET ESTIMATE INCREASED; TOTAL CELLS COUNTED 100
[2020-08-08 17:40] LABS: MICROCYTOSIS 1+; SPHEROCYTES 1+
[2020-08-08 17:42] LABS: HYPOCHROMASIA 1+
[2020-08-08] MEDS: insulin regular, human U-100 3ml vial - multi-dose IV PRN ×2 (17:59→19:50)
--- NOTE | 2020-08-08 18:00 | NUR ---
verbal order for soft strain for aloc by saira rome and margret martel applied the soft restrain.
--- NOTE | 2020-08-08 18:00 | NUR ---
DR MORRIS AT BEDSIDE STATED TAHT PT NEED COVID SWAB,PT IS MORE ALERTED AND DISORIENTED ,INFORME DTHAT PT TRYING TO GET OUT OF ER .PT NEED IV ,BLD CULTURES,PT IS DETORIATING .DYLAN AT BEDSIDE FOR CO SIGNING THE INSULIN.
[2020-08-08 18:06] LABS: ALANINE AMINOTRANSFERASE 63 U/L (12-78); ALBUMIN 2.6 G/DL (3.4-5.0); ALBUMIN/GLOBULIN RATIO 0.7 (1.1-1.5); ALKALINE PHOSPHATASE 85 IU/L (46-116); ASPARTATE AMINO TRANSFERASE 72 U/L (10-37); BILIRUBIN,DIRECT 0.1 MG/DL (0-0.3); BILIRUBIN,TOTAL 0.5 MG/DL (0.1-1.0); BLOOD UREA NITROGEN 21 MG/DL (7-18); BUN/CREATININE RATIO 16.7 (5.4-32.0); CALCIUM 7.3 MG/DL (8.5-10.1); CHLORIDE 102 MMOL/L (99-107); CREATININE 1.26 MG/DL (0.60-1.10); LIPASE 143 U/L (73-393); PHOSPHORUS 7.6 MG/DL (2.3-4.5); POTASSIUM 4.5 MMOL/L (3.5-5.1); SODIUM 140 MMOL/L (135-145); TOTAL PROTEIN 6.2 G/DL (6.4-8.2); eGFR 67 ML/MIN
[2020-08-08 18:07] LABS: ANION GAP 33 (8-16)
[2020-08-08 18:10] LABS: GLUCOSE 723 MG/DL (70-104); TOTAL CARBON DIOXIDE < 5 MMOL/L (24-32)
[2020-08-08] MEDS ORDERED: vancomycin inj 2,000 MG in normal saline 500ml IV soln 500 ML IV ONE (18:30)
[2020-08-08 18:49] LABS: ETHANOL < 0.010 GM/DL (0.0-0.010)
[2020-08-08 19:05] LABS: URINE AMPHETAMINE SCREEN NEGATIVE (Neg); URINE BARBITUATE SCREEN NEGATIVE (Neg); URINE BENZODIAZEPINES SCREEN NEGATIVE (Neg); URINE CANNABINOID SCREEN NEGATIVE (Neg); URINE COCAINE SCREEN NEGATIVE (Neg); URINE METHADONE SCREEN NEGATIVE (Neg); URINE OPIATE SCREEN NEGATIVE (Neg); URINE PHENCYCLIDINE SCREEN NEGATIVE (Neg)
[2020-08-08] MEDS: piperacillin/tazo 4.5gm/100ml 100 ML IV SCH (19:14)
[2020-08-08] MEDS ORDERED: K and/or MAG REPLACEMENT MC SCH (20:00)
[2020-08-08 20:04] LABS: ABG OXYGEN SATURATION 98.2 % (94-97); ABG PO2 (T) 137.1 mmHg (75.0-100.0); ALLEN'S TEST POSITIVE; FCOHb 0.3 % (0.0-3.9); FMetHb 0.4 % (0.0-1.5); FO2Hb 97.5 % (94-97); PATIENT TEMPERATURE 36.4; TOTAL HEMOGLOBIN 11.8 G/dl (14.0-18.0)
[2020-08-08] MEDS ORDERED: insulin regular, human U-100 3ml vial - multi-dose IV PRN (20:05)
[2020-08-08] MEDS ORDERED: acetaminophen 325mg tablet PO PRN (20:05)
[2020-08-08] MEDS: normal saline 1000ml 1,000 ML IV SCH (20:05)
[2020-08-08] MEDS: Insulin Reg/NS 100units/100mL 100 ML IV SCH (21:34)
[2020-08-08 21:55] LABS: ANION GAP 29 (8-16); BLOOD UREA NITROGEN 22 MG/DL (7-18); BUN/CREATININE RATIO 13.8 (5.4-32.0); CALCIUM 8.1 MG/DL (8.5-10.1); CHLORIDE 107 MMOL/L (99-107); PHOSPHORUS 5.3 MG/DL (2.3-4.5); SODIUM 143 MMOL/L (135-145); eGFR 51 ML/MIN
[2020-08-08 22:09] LABS: GLUCOSE 585 MG/DL (70-104)
[2020-08-08] MEDS: acetaminophen 325mg tablet PO PRN (22:11)
[2020-08-08 23:20] LABS: ANION GAP 30 (8-16); BLOOD UREA NITROGEN 22 MG/DL (7-18); BUN/CREATININE RATIO 13.2 (5.4-32.0); CALCIUM 8.1 MG/DL (8.5-10.1); CHLORIDE 110 MMOL/L (99-107); CREATININE 1.67 MG/DL (0.60-1.10); GLUCOSE 398 MG/DL (70-104); POTASSIUM 4.1 MMOL/L (3.5-5.1); SODIUM 146 MMOL/L (135-145); eGFR 48 ML/MIN
[2020-08-08 23:21] LABS: TOTAL CARBON DIOXIDE 6.4 MMOL/L (24-32)
[2020-08-08] MEDS: potassium CL 20mEq in D5-1/2NS 1,000 ML IV PRN (23:47)
[2020-08-09] MEDS: normal saline 1000ml 1,000 ML IV SCH ×2 (00:05→04:05)
[2020-08-09 01:15] LABS: ALBUMIN 2.3 G/DL (3.4-5.0); ANION GAP 21 (8-16); BLOOD UREA NITROGEN 19 MG/DL (7-18); CHLORIDE 109 MMOL/L (99-107); CREATININE 1.36 MG/DL (0.60-1.10); GLUCOSE 160 MG/DL (70-104); PHOSPHORUS 1.6 MG/DL (2.3-4.5); POTASSIUM 4.1 MMOL/L (3.5-5.1); SODIUM 141 MMOL/L (135-145); eGFR 61 ML/MIN
[2020-08-09 01:16] LABS: TOTAL CARBON DIOXIDE 11.2 MMOL/L (24-32)
[2020-08-09 03:31] LABS: BASOPHILS % (AUTO) 0.2 % (0-1); EOSINOPHILS % (AUTO) 0 % (0-6); HEMATOCRIT 28.5 % (42.0-52.0); HEMOGLOBIN 8.9 g/dl (14.0-17.9); LYMPHOCYTES # (AUTO) 1.4 X10'3 (1.1-4.8); MEAN CORPUSCULAR HEMOGLOBIN 23.5 PG (27.0-31.0); MEAN CORPUSCULAR HGB CONC 31.3 g/dL (33.0-36.5); MEAN CORPUSCULAR VOLUME 75.3 FL (78-98); MEAN PLATELET VOLUME 7.7 FL (7.4-10.4); MONOCYTES # (AUTO) 1.7 X10'3 (0-0.9); MONOCYTES % (AUTO) 6.2 % (2-12); NEUTROPHILS # (AUTO) 24.7 X10'3 (1.8-7.7); NEUTROPHILS % (AUTO) 88.6 % (42-75); PLATELET COUNT 415 X10'3 (140-440); RED BLOOD COUNT 3.78 X10'6 (4.70-6.10); RED CELL DISTRIBUTION WIDTH 16.2 % (11.5-14.5)
[2020-08-09 03:38] LABS: WHITE BLOOD COUNT 27.9 X10'3 (4.5-11.0)
[2020-08-09 03:48] LABS: ALANINE AMINOTRANSFERASE 57 U/L (12-78); ALBUMIN 2.3 G/DL (3.4-5.0); ALBUMIN/GLOBULIN RATIO 0.7 (1.1-1.5); ALKALINE PHOSPHATASE 67 IU/L (46-116); ANION GAP 15 (8-16); ASPARTATE AMINO TRANSFERASE 70 U/L (10-37); BILIRUBIN,TOTAL 0.2 MG/DL (0.1-1.0); BLOOD UREA NITROGEN 16 MG/DL (7-18); BUN/CREATININE RATIO 15.1 (5.4-32.0); CALCIUM 7.1 MG/DL (8.5-10.1); CHLORIDE 110 MMOL/L (99-107); CREATININE 1.06 MG/DL (0.60-1.10); GLUCOSE 113 MG/DL (70-104); POTASSIUM 3.2 MMOL/L (3.5-5.1); SODIUM 143 MMOL/L (135-145); TOTAL CARBON DIOXIDE 17.9 MMOL/L (24-32); TOTAL PROTEIN 5.6 G/DL (6.4-8.2); eGFR 81 ML/MIN
[2020-08-09 03:51] LABS: PHOSPHORUS 1.2 MG/DL (2.3-4.5)
--- NOTE | 2020-08-09 04:06 | NUR ---
GETACHEW MANUAL TRAINING TEACHER MADE AWARE OF CRITICAL LAB VALUES, AND OF BG LOW 100S DESPITE DKA PROTOCOL MINIMUM BG 150-250. GETACHEW STATES TO KEEP MONITORING BUT DID NOT WANT CHANGE IN MAINTAINANCE FLUIDS. PT ALSO CO ABD PAIN DESPITE TYLENOL ADMINISTRATION. GETACHEW MANUAL TRAINING TEACHER VERBAL ORDER NORCO 5/325 Q6 PRN PAIN.
[2020-08-09] MEDS: ondansetron/PF 4mg/2ml inj IV PRN ×2 (04:42→23:35)
[2020-08-09] MEDS: potassium CL 20mEq in D5-1/2NS 1,000 ML IV PRN ×3 (04:42→09:32)
[2020-08-09] MEDS: HYDROcodone/acetaminophen 5mg/325mg tablet PO PRN ×2 (04:49→23:36)
[2020-08-09] MEDS: Neutra Phos packet PO PRN (05:22)
[2020-08-09 07:15] LABS: HYPOCHROMASIA 1+; MICROCYTOSIS 1+; PLATELET ESTIMATE NORMAL; TOTAL CELLS COUNTED 100
[2020-08-09 07:16] LABS: SCHISTOCYTES FEW; SPHEROCYTES FEW
[2020-08-09 07:17] LABS: TOXIC GRANULATION 1+
[2020-08-09] MEDS: pantoprazole 40mg Tablet.DR PO SCH (07:48)
[2020-08-09] MEDS: cyclobenzaprine 10mg tablet PO SCH ×3 (07:48→23:37)
[2020-08-09] MEDS: piperacillin/tazo 4.5gm/100ml 100 ML IV SCH ×2 (07:48→23:33)
[2020-08-09 07:50] LABS: ALBUMIN 2.1 G/DL (3.4-5.0); ANION GAP 11 (8-16); BLOOD UREA NITROGEN 15 MG/DL (7-18); BUN/CREATININE RATIO 16.5 (5.4-32.0); CALCIUM 7.2 MG/DL (8.5-10.1); CHLORIDE 109 MMOL/L (99-107); CREATININE 0.91 MG/DL (0.60-1.10); GLUCOSE 287 MG/DL (70-104); POTASSIUM 4.4 MMOL/L (3.5-5.1); SODIUM 139 MMOL/L (135-145); TOTAL CARBON DIOXIDE 18.7 MMOL/L (24-32); eGFR > 90 ML/MIN
[2020-08-09] MEDS: K and/or MAG REPLACEMENT MC SCH ×2 (08:00→20:00)
[2020-08-09] MEDS: Insulin Reg/NS 100units/100mL 100 ML IV SCH (09:24)
[2020-08-09 09:32] LABS: ABG PCO2 (T) < 10.0 mmHg (35.0-48.0)
[2020-08-09 09:32] LABS: ABG PCO2 (T) < 10.0 mmHg (35.0-48.0)
[2020-08-09] MEDS ORDERED: non-formulary drug (Insulin Lispro (Humalog) 1 UNITS) SQ SCH (09:35)
--- NOTE | 2020-08-09 10:41 | NUR ---
Consulted with Ermelinda ICU Charge regarding patients current status and if we should still administer lantus due to dropping blood glucose over the last few hours. She stated important to given lantus. To check blood glucose and patient often for decreased mental status. Notified Darcie DOWD regarding this. RN will notify Dr. Shoemaker if blood glucose continues decrease for change in fluid.
[2020-08-09] MEDS: insulin glargine (Lantus) pen - multi-dose SQ SCH ×2 (10:58→20:00)
[2020-08-09 11:10] LABS: ANION GAP 9 (8-16); BLOOD UREA NITROGEN 12 MG/DL (7-18); BUN/CREATININE RATIO 12.5 (5.4-32.0); CALCIUM 6.6 MG/DL (8.5-10.1); CHLORIDE 110 MMOL/L (99-107); CREATININE 0.96 MG/DL (0.60-1.10); GLUCOSE 354 MG/DL (70-104); POTASSIUM 4.8 MMOL/L (3.5-5.1); SODIUM 138 MMOL/L (135-145); TOTAL CARBON DIOXIDE 18.6 MMOL/L (24-32); eGFR > 90 ML/MIN
--- NOTE | 2020-08-09 11:20 | NUR ---
came to er . he states to give the lantus and give the patient something to eat and turn off the fluids and insulin drip at 1200
--- NOTE | 2020-08-09 12:14 | NUR ---
insulin drip off and D5 off. pt ambulated to bathroom. brushed his teeth. pt placed on hospital bed.
[2020-08-09] MEDS: acetaminophen 325mg tablet PO PRN (13:02)
--- NOTE | 2020-08-09 18:27 | NUR ---
PA Addendum: 08/09/20 at 1827 by COLT PATIENT IN HOSPITAL BED EYES OPEN COVERS VERBALIZED RESTING COMFORTABLY, WILL CONTINUE TO MONITOR
--- NOTE | 2020-08-09 19:00 | NUR ---
Notified Timmy Randolph to look into it to see if the patient can be downgraded out of ICU status.
[2020-08-09] MEDS ORDERED: insulin glargine (Lantus) pen - multi-dose SQ SCH (20:00)
--- NOTE | 2020-08-09 20:01 | NUR ---
STOOL SAMPLE TAKEN AND WALKED TO LAB
--- NOTE | 2020-08-09 20:26 | NUR ---
CALLED DR. SMITH HOSPITALIST DUE TO PATIENTS BG 109 AND 30 UNITS OF LANTUS DUE, DR. SMITH VERBALIZED TO NON ADMINISTER LANTUS THIS EVENING
--- NOTE | 2020-08-09 20:27 | NUR ---
PATIENT EATING SALTINE CRACKERS, DID NOT ENJOY WHAT WAS FOR DINNER THIS EVENING MD AWARE, 0 CARB COUNT FOR DINNER
[2020-08-09] MEDS: lactobacillus rhamnosus 10,000 MMU CELLS/CAPSULE PO SCH (20:33)
[2020-08-09 22:30] VITALS: BP 125/85
[2020-08-10 02:00] VITALS: BP 126/79
[2020-08-10] MEDS ORDERED: Neutra Phos packet PO PRN (03:30)
[2020-08-10] MEDS: Neutra Phos packet PO PRN (05:12)
[2020-08-10 06:00] VITALS: BP 133/87
[2020-08-10] MEDS ORDERED: insulin Lispro (HumaLOG) vial - multi-dose SQ SCH (06:55)
[2020-08-10] MEDS ORDERED: glucagon, human recombinant 1mg kit SUBCUT PRN (06:55)
[2020-08-10] MEDS ORDERED: dextrose 50%-water 50ml dispensing syringe IV PRN ×2 (06:55)
[2020-08-10] MEDS ORDERED: dextrose ORAL solution 15 GM/59 ML bottle PO PRN ×2 (06:55)
[2020-08-10] MEDS: pantoprazole 40mg Tablet.DR PO SCH (07:39)
[2020-08-10] MEDS: lactobacillus rhamnosus 10,000 MMU CELLS/CAPSULE PO SCH (07:39)
[2020-08-10] MEDS: cyclobenzaprine 10mg tablet PO SCH ×2 (07:39→12:59)
[2020-08-10] MEDS: piperacillin/tazo 4.5gm/100ml 100 ML IV SCH (07:40)
[2020-08-10] MEDS: K and/or MAG REPLACEMENT MC SCH (08:00)
[2020-08-10 08:01] LABS: BASOPHILS % (AUTO) 0.3 % (0-1); EOSINOPHILS # (AUTO) 0.1 X10'3 (0-0.9); EOSINOPHILS % (AUTO) 0.4 % (0-6); HEMOGLOBIN 8.6 g/dl (14.0-17.9); LYMPHOCYTES # (AUTO) 1.9 X10'3 (1.1-4.8); LYMPHOCYTES % (AUTO) 13.6 % (21-51); MEAN CORPUSCULAR HEMOGLOBIN 24.2 PG (27.0-31.0); MEAN CORPUSCULAR HGB CONC 31.9 g/dL (33.0-36.5); MEAN CORPUSCULAR VOLUME 75.6 FL (78-98); MEAN PLATELET VOLUME 8.2 FL (7.4-10.4); MONOCYTES # (AUTO) 0.7 X10'3 (0-0.9); MONOCYTES % (AUTO) 5.1 % (2-12); NEUTROPHILS # (AUTO) 11.2 X10'3 (1.8-7.7); NEUTROPHILS % (AUTO) 80.6 % (42-75); PLATELET COUNT 344 X10'3 (140-440); RED BLOOD COUNT 3.57 X10'6 (4.70-6.10); RED CELL DISTRIBUTION WIDTH 16.4 % (11.5-14.5); WHITE BLOOD COUNT 13.8 X10'3 (4.5-11.0)
[2020-08-10 08:12] LABS: ALANINE AMINOTRANSFERASE 49 U/L (12-78); ALBUMIN/GLOBULIN RATIO 0.6 (1.1-1.5); ALKALINE PHOSPHATASE 73 IU/L (46-116); ANION GAP 12 (8-16); ASPARTATE AMINO TRANSFERASE 47 U/L (10-37); BILIRUBIN,TOTAL 0.2 MG/DL (0.1-1.0); BLOOD UREA NITROGEN 9 MG/DL (7-18); BUN/CREATININE RATIO 13.6 (5.4-32.0); CALCIUM 7.6 MG/DL (8.5-10.1); CHLORIDE 109 MMOL/L (99-107); CREATININE 0.66 MG/DL (0.60-1.10); GLUCOSE 144 MG/DL (70-104); SODIUM 144 MMOL/L (135-145); TOTAL CARBON DIOXIDE 22.6 MMOL/L (24-32); TOTAL PROTEIN 5.3 G/DL (6.4-8.2); eGFR > 90 ML/MIN
[2020-08-10 08:15] LABS: POTASSIUM 2.8 MMOL/L (3.5-5.1)
[2020-08-10] MEDS: potassium Cl 20 mEq SR tablet PO PRN ×2 (09:32→13:00)
[2020-08-10] MEDS: HYDROcodone/acetaminophen 5mg/325mg tablet PO PRN (09:35)
[2020-08-10] MEDS: insulin glargine (Lantus) pen - multi-dose SQ SCH (09:50)
[2020-08-10 11:00] VITALS: BP 130/83
[2020-08-10 13:04] LABS: C DIFF ANTIGEN NEGATIVE (NEGATIVE); C DIFF SPECIMEN=DIARRHEA? ACCEPTABLE; C DIFFICILE TOXINS A&B NEGATIVE (Neg)
[2020-08-10] MEDS: acetaminophen 325mg tablet PO PRN (13:05)
[2020-08-10 15:00] VITALS: BP 128/80
[2020-08-10] MEDS ORDERED: INSU100V9 SQ (15:16)
--- NOTE | 2020-08-10 16:04 | NUR ---
Patient admitted with DKA, metabolic encephalopathy. Previously seen by Dietitian in May 2020 when admitted with DKA; at other visits patient has stated he states he checks his BG levels 3-4 times a day and sees an MD a few times a year.; pt has h/o type 1 DM since age 21. Last A1c 12.3% from 05/11/2020. Per current H&P pt presented with abdominal pain, n/v, diarrhea, confusion r/t acidosis. Blood glucose 676 on arrival and increased to 746 mg/dl. Ate 75-100% of breakfast. Patient seen at bedside and given written DM education handout with verbal review, pt reports that he also has a history of gastroparesis that complicates his DM management. Discussed to avoid high fiber foods when gastroparesis flares up and recommend either pureed or full liquids when having severe symptoms. Encouraged pt to see if he can be referred to a glass cutter helper, CDE, or Dietitian for ongoing DM management. Recommend: 1. continue carb controlled diet 2. wt per rx Addendum: 08/10/20 at [address] Amended: Links added.
--- NOTE | 2020-08-10 16:45 | NUR ---
Patient stable for discharge per md orders. Patient discharge instructions gone over in thorough detail. Strict return precautions gone over including elevated blood glucose. No new medications faxed to pharmacy. IV's discontinued with cannula's intact. wristbands cut off at time of discharge. Patient accompanied down to lobby.
[2020-08-10] MEDS ORDERED: insulin glargine (Lantus) pen - multi-dose SQ SCH (21:00)
== END 2020-08-10 17:05 | disposition home or self-care (01) | DRG 637 ==
LOC: ER 15:43 → ED HOLD 20:01 → EDBEDREQSVC 08-09 20:50 → PCU 3S 08-09 21:30
PROVIDERS: ADMIT Internal Medicine Critical Care Medicine; ATTEND Internal Medicine Critical Care Medicine
PROC: BW211ZZ Computerized Tomography (CT Scan) of Abdomen and Pelvis using Low Osmolar Contrast (ICD-10-PCS; principal; 2020-08-08)
DX: E10.10 Type 1 diabetes mellitus with ketoacidosis without coma (principal); G93.41 Metabolic encephalopathy; N17.9 Acute kidney failure, unspecified; F12.90 Cannabis use, unspecified, uncomplicated; F17.210 Nicotine dependence, cigarettes, uncomplicated; G89.29 Other chronic pain; M54.9 Dorsalgia, unspecified; K21.00 Gastro-esophageal reflux disease with esophagitis, without bleeding; K52.9 Noninfective gastroenteritis and colitis, unspecified; Z20.822 Contact with and (suspected) exposure to COVID-19; Z79.4 Long term (current) use of insulin; Z83.3 Family history of diabetes mellitus; Z79.899 Other long term (current) drug therapy
CPT/HCPCS: 36415; 36600; 70450; 71045; 74177; 80048; 80053; 80076; 80305; 80320; 81001; 82803; 82947; 82948; 83605; 83690; 84100; 85007; 85018; 85025; 87040; 87081; 87324; 87449; 87635; 96365; 96375; 99285; C9803; G0378; J1815; J2270; J2405; J2543; J2765; J3370; J3480; J7030; J7040; Q9967

== ENCOUNTER 2022-07-17 17:17 | Inpatient (IN) | payer MEDICAID ==
[~2022-07-17] VITALS: Ht 182.9 cm; Wt 150.0 kg
[~2022-07-17 17:17] MED LIST changes: -AMOX500C4 PO; +INSU100I31 SQ; -INSU100V9 SQ; -PANT40TA54 PO; -POTA20TA10 PO
[2022-07-17] MEDS ORDERED: normal saline 1000ml 1,000 ML IV SCH (17:25)
[2022-07-17] MEDS ORDERED: metoclopramide 5 mg/ml inj IV ONE (17:25)
[2022-07-17 17:56] LABS: BASOPHILS % (AUTO) 0.2 % (0-1); EOSINOPHILS % (AUTO) 0 % (0-6); HEMATOCRIT 47.9 % (42.0-52.0); HEMOGLOBIN 15.8 g/dl (14.0-17.9); LYMPHOCYTES # (AUTO) 0.8 X10'3 (1.1-4.8); LYMPHOCYTES % (AUTO) 4.8 % (21-51); MEAN CORPUSCULAR HEMOGLOBIN 26.4 PG (27.0-31.0); MEAN CORPUSCULAR HGB CONC 32.9 g/dL (33.0-36.5); MEAN CORPUSCULAR VOLUME 80.1 FL (78-98); MEAN PLATELET VOLUME 9.2 FL (7.4-10.4); MONOCYTES # (AUTO) 0.9 X10'3 (0-0.9); MONOCYTES % (AUTO) 5.3 % (2-12); NEUTROPHILS # (AUTO) 15.3 X10'3 (1.8-7.7); NEUTROPHILS % (AUTO) 89.7 % (42-75); PLATELET COUNT 381 X10'3 (140-440); RED BLOOD COUNT 5.97 X10'6 (4.70-6.10)
[2022-07-17 18:07] LABS: ALANINE AMINOTRANSFERASE 47 U/L (12-78); ALBUMIN 3.5 G/DL (3.4-5.0); ALBUMIN/GLOBULIN RATIO 0.7 (1.1-1.5); ALKALINE PHOSPHATASE 91 IU/L (46-116); ANION GAP 22 (8-16); ASPARTATE AMINO TRANSFERASE 64 U/L (10-37); BILIRUBIN,TOTAL 0.3 MG/DL (0.1-1.0); BLOOD UREA NITROGEN 56 MG/DL (7-18); BUN/CREATININE RATIO 26.7 (5.4-32.0); CALCIUM 8.5 MG/DL (8.5-10.1); CHLORIDE 95 MMOL/L (99-107); GLUCOSE 298 MG/DL (70-104); LIPASE < 50 U/L (73-393); POTASSIUM 3.6 MMOL/L (3.5-5.1); SODIUM 139 MMOL/L (135-145); TOTAL CARBON DIOXIDE 22.3 MMOL/L (24-32); TOTAL PROTEIN 8.3 G/DL (6.4-8.2); eGFR 37 ML/MIN
[2022-07-17] MEDS ORDERED: insulin regular, human 10 units/0.1 ml syringe IV ONE (18:15)
[2022-07-17] MEDS: normal saline 1000ml 1,000 ML IV SCH ×2 (18:25→22:25)
[2022-07-17] MEDS: Insulin Reg/NS 100units/100mL 100 ML IV SCH (18:25)
[2022-07-17 18:52] LABS: ABG HCO3 19.4 mmol/L (22.0-26.0); ABG OXYGEN SATURATION 97.5 % (94-97); ABG PCO2 (T) 30.4 mmHg (35.0-48.0); ABG PO2 (T) 91.3 mmHg (75.0-100.0); ALLEN'S TEST POSITIVE; FCOHb 0.4 % (0.0-3.9); FMetHb 0.4 % (0.0-1.5); FO2Hb 96.7 % (94-97); PATIENT TEMPERATURE 36.5; TOTAL HEMOGLOBIN 15.4 G/dl (14.0-17.9)
[2022-07-17] MEDS ORDERED: HYDROcodone/acetaminophen 5mg/325mg tablet PO ONE (18:55)
[2022-07-17] MEDS ORDERED: mag hydrox/Alum hydrox/simeth 30ml oral suspension PO PRN (20:05)
[2022-07-17] MEDS ORDERED: bisacodyl 10mg suppository rectal RC PRN (20:05)
[2022-07-17] MEDS ORDERED: acetaminophen 325mg tablet PO PRN ×2 (20:05)
[2022-07-17] MEDS ORDERED: potassium Cl 40MEQ/1/2NS 520ml 520 ML IV PRN (20:05)
[2022-07-17] MEDS ORDERED: ondansetron 4mg rapidly disintigrating tab PO PRN (20:05)
[2022-07-17] MEDS ORDERED: morphine 2 MG/ML inj. syringe IV PRN (20:05)
[2022-07-17] MEDS ORDERED: potassium Cl 20 mEq SR tablet PO PRN ×2 (20:05)
[2022-07-17] MEDS ORDERED: magnesium 4gm in 100ml NS 100 ML IV PRN (20:05)
[2022-07-17] MEDS ORDERED: magnesium hydroxide 30ml (MOM) UD suspension PO PRN (20:05)
[2022-07-17] MEDS ORDERED: magnesium Cl slow-release 64mg tablet PO PRN (20:05)
[2022-07-17] MEDS ORDERED: acetaminophen 650mg rectal suppository RC PRN (20:05)
[2022-07-17] MEDS ORDERED: diphenhydrAMINE 25mg capsule PO PRN (20:05)
--- NOTE | 2022-07-17 20:10 | NUR ---
Continue to hold of insulin gtt per Dr Choudhury
[2022-07-17] MEDS ORDERED: CefTRIAXone/D5W-Rocephin 1gm 50 ML IV SCH ×3 (20:18→20:21)
[2022-07-17] MEDS ORDERED: azithromycin/NS 500mg/250ml 250 ML IV SCH ×2 (20:18)
[2022-07-17] MEDS ORDERED: insulin Lispro (HumaLOG) vial - multi-dose SQ SCH (20:20)
[2022-07-17] MEDS ORDERED: MESSAGE TO PHARMACY PO ONE (20:20)
[2022-07-17] MEDS ORDERED: glucagon, human recombinant 1mg kit SUBCUT PRN (20:20)
[2022-07-17] MEDS ORDERED: dextrose 50%-water 50ml dispensing syringe IV PRN ×2 (20:20)
[2022-07-17] MEDS ORDERED: DEXTROSE 15 GM of carb/4 tabs (each vial/BOTTLE has 4 tablets) PO PRN ×2 (20:20)
[2022-07-17 20:41] LABS: APTT 27 SECONDS (22-32); D-DIMER 0.49 MG/L FEU (0-0.50)
[2022-07-17 20:44] LABS: HEMOGLOBIN A1C 11.7 % (4.5-6.2)
[2022-07-17] MEDS: insulin glargine (Lantus) pen - multi-dose SQ SCH (21:00)
[2022-07-17] MEDS ORDERED: temazepam 15mg capsule PO PRN (21:00)
[2022-07-17] MEDS: azithromycin/NS 500mg/250ml 250 ML IV SCH (21:05)
[2022-07-17] MEDS: potassium Cl 20mEq in NS 1,000 ML IV SCH (21:06)
[2022-07-17 21:23] LABS: CREATINE KINASE 95 U/L (39-308); MAGNESIUM 1.9 MG/DL (1.5-2.4)
--- NOTE | 2022-07-17 23:00 | NUR ---
pt told that if he does not give urine sample soon, pt will need to be cath for urine, pt trying to urinate at this time
[2022-07-17 23:16] LABS: CLARITY,URINE CLEAR (Clear); COLOR,URINE YELLOW (Yellow); GLUCOSE, URINE 250 mg/dl (Neg); KETONES,URINE 40 mg/dl (Neg); LEUKOCYTE ESTERASE ,URINE NEGATIVE (Neg); NITRITES, URINE NEGATIVE (Neg); OCCULT BLOOD,URINE NEGATIVE (Neg); PROTEIN,URINE 30 mg/dl (Neg); UROBILINOGEN,URINE 0.2 E.U/dL (0.2-1.0)
[2022-07-17 23:18] LABS: UA COLLECTION TYPE NON-SPECIFIED
[2022-07-17 23:23] LABS: BACTERIA,URINE FEW /HPF (Neg); RBC,URINE 0-2 /HPF (0-2); SQUAMOUS EPITHELIAL CELL,UR FEW /LPF (FEW); URINE AMPHETAMINE SCREEN NEGATIVE (Neg); URINE BARBITUATE SCREEN NEGATIVE (Neg); URINE BENZODIAZEPINES SCREEN NEGATIVE (Neg); URINE CANNABINOID SCREEN POSITIVE (Neg); URINE COCAINE SCREEN NEGATIVE (Neg); URINE METHADONE SCREEN NEGATIVE (Neg); URINE OPIATE SCREEN POSITIVE (Neg); URINE PHENCYCLIDINE SCREEN NEGATIVE (Neg); WBC,URINE 0-4 /HPF (0-4)
[2022-07-17] MEDS: HYDROcodone/acetaminophen 5mg/325mg tablet PO PRN (23:50)
[2022-07-18] MEDS: potassium Cl 20mEq in NS 1,000 ML IV SCH ×2 (02:00→06:05)
[2022-07-18] MEDS: ondansetron/PF 4mg/2ml inj IV PRN ×2 (03:28→19:44)
[2022-07-18 03:38] LABS: BASOPHILS % (AUTO) 0.1 % (0-1); EOSINOPHILS % (AUTO) 0 % (0-6); HEMATOCRIT 36.4 % (42.0-52.0); HEMOGLOBIN 11.7 g/dl (14.0-17.9); LYMPHOCYTES # (AUTO) 1.8 X10'3 (1.1-4.8); LYMPHOCYTES % (AUTO) 9.7 % (21-51); MEAN CORPUSCULAR VOLUME 81.3 FL (78-98); MEAN PLATELET VOLUME 9.4 FL (7.4-10.4); MONOCYTES # (AUTO) 1.2 X10'3 (0-0.9); MONOCYTES % (AUTO) 6.4 % (2-12); NEUTROPHILS # (AUTO) 15.9 X10'3 (1.8-7.7); NEUTROPHILS % (AUTO) 83.8 % (42-75); PLATELET COUNT 281 X10'3 (140-440); RED BLOOD COUNT 4.48 X10'6 (4.70-6.10); RED CELL DISTRIBUTION WIDTH 15.3 % (11.5-14.5)
[2022-07-18 03:50] LABS: ALANINE AMINOTRANSFERASE 32 U/L (12-78); ALBUMIN 2.4 G/DL (3.4-5.0); ALBUMIN/GLOBULIN RATIO 0.7 (1.1-1.5); ALKALINE PHOSPHATASE 60 IU/L (46-116); ANION GAP 20 (8-16); ASPARTATE AMINO TRANSFERASE 45 U/L (10-37); BILIRUBIN,TOTAL 0.3 MG/DL (0.1-1.0); BLOOD UREA NITROGEN 36 MG/DL (7-18); BUN/CREATININE RATIO 32.1 (5.4-32.0); CALCIUM 7.1 MG/DL (8.5-10.1); CHLORIDE 100 MMOL/L (99-107); CHOL/HDL RATIO 3.2 (0.00-4.99); CHOLESTEROL 153 MG/DL (0-200); CREATININE 1.12 MG/DL (0.60-1.10); GLUCOSE 316 MG/DL (70-104); HDL CHOLESTEROL 48 MG/DL (35-60); LDL CHOLESTEROL 91 MG/DL (50-100); MAGNESIUM 1.9 MG/DL (1.5-2.4); SODIUM 135 MMOL/L (135-145); TOTAL PROTEIN 5.8 G/DL (6.4-8.2); TRIGLYCERIDES 101 MG/DL (20-135); eGFR 76 ML/MIN
[2022-07-18 03:53] LABS: TOTAL CARBON DIOXIDE 14.7 MMOL/L (24-32)
[2022-07-18 04:14] LABS: BURR CELLS 1+; PLATELET ESTIMATE NORMAL
[2022-07-18 04:15] LABS: ELLIPTOCYTES FEW; TEAR DROP CELLS FEW
[2022-07-18 04:25] LABS: ABG BASE EXCESS -13.5 mmol/L (-2.0-2.0); ABG HCO3 11.5 mmol/L (22.0-26.0); ABG PCO2 (T) 24.9 mmHg (35.0-48.0); ABG PO2 (T) 112.9 mmHg (75.0-100.0); ALLEN'S TEST POSITIVE; FCOHb 0.1 % (0.0-3.9); FMetHb 0.3 % (0.0-1.5); FO2Hb 97.6 % (94-97); TOTAL HEMOGLOBIN 12.8 G/dl (14.0-17.9)
--- NOTE | 2022-07-18 05:24 | NUR ---
Dr Borges did rounds, discussed lab values, advised we can use sliding scale insulin to treat glucoses
--- NOTE | 2022-07-18 06:36 | NUR ---
report from sofi for continuation of care. pt is awake ao4 resp even unlabored. skin w/d/i pink. pt glucose 329 per rn sofi she spoke to md and ok to use sliding scale. called pharm and will pickle processor insulin humlog. pt voided approx 500 ml yellow urine.
[2022-07-18] MEDS: metoclopramide 5 mg/ml inj IV PRN ×2 (07:04→14:45)
[2022-07-18] MEDS: normal saline 1000ml 1,000 ML IV SCH (07:29)
[2022-07-18] MEDS: K and/or MAG REPLACEMENT MC SCH ×3 (08:00→20:00)
[2022-07-18] MEDS: docusate sod 100mg capsule PO SCH ×2 (08:00→20:00)
[2022-07-18] MEDS: magnesium oxide 400mg tablet PO SCH (08:00)
[2022-07-18] MEDS: morphine 2 MG/ML inj. syringe IV PRN ×3 (08:13→19:45)
--- NOTE | 2022-07-18 09:12 | NUR ---
Lab called: Pt Covid positive. RN initiated enhanced precautions.
[2022-07-18] MEDS: dexamethasone 4mg/ml inj IV SCH (10:18)
[2022-07-18] MEDS: heparin, porcine 5000 units/ml vial SQ SCH ×2 (10:21→22:06)
[2022-07-18] MEDS: pantoprazole 40MG/NS 100ML BAG 100 ML IV SCH (10:24)
[2022-07-18 10:39] LABS: ALBUMIN 2.6 G/DL (3.4-5.0); BLOOD UREA NITROGEN 28 MG/DL (7-18); BUN/CREATININE RATIO 23.9 (5.4-32.0); CALCIUM 7.7 MG/DL (8.5-10.1); CHLORIDE 100 MMOL/L (99-107); CREATININE 1.17 MG/DL (0.60-1.10); GLUCOSE 241 MG/DL (70-104); POTASSIUM 4.5 MMOL/L (3.5-5.1); eGFR 72 ML/MIN
[2022-07-18] MEDS: CefTRIAXone/D5W-Rocephin 1gm 50 ML IV SCH (10:42)
[2022-07-18 10:43] LABS: ANION GAP 22 (8-16); SODIUM 134 MMOL/L (135-145)
[2022-07-18 10:52] LABS: TOTAL CARBON DIOXIDE 12.5 MMOL/L (24-32)
--- NOTE | 2022-07-18 10:56 | NUR ---
Lab result: CO2 12.5. RN notified primary NILE Hardin and paged Dr. Nunn with result.
[2022-07-18] MEDS: Insulin Reg/NS 100units/100mL 100 ML IV SCH (11:55)
--- NOTE | 2022-07-18 13:49 | NUR ---
CONTACTED DR PAK FOR ORDER OF 10 UNITS IV BOLUS REGULAR INSULIN. PT INSULIN DRIP CURRENTLY AT 10 UNITS/HR WITH D5 1/2 NORMAL SALINE @150 ML/HR
[2022-07-18 15:39] LABS: ALANINE AMINOTRANSFERASE 33 U/L (12-78); ALBUMIN 2.5 G/DL (3.4-5.0); ALBUMIN/GLOBULIN RATIO 0.7 (1.1-1.5); ALKALINE PHOSPHATASE 69 IU/L (46-116); ANION GAP 17 (8-16); ASPARTATE AMINO TRANSFERASE 42 U/L (10-37); BILIRUBIN,TOTAL 0.3 MG/DL (0.1-1.0); BLOOD UREA NITROGEN 23 MG/DL (7-18); BUN/CREATININE RATIO 19.2 (5.4-32.0); CALCIUM 7.8 MG/DL (8.5-10.1); CHLORIDE 105 MMOL/L (99-107); GLUCOSE 178 MG/DL (70-104); SODIUM 136 MMOL/L (135-145); TOTAL PROTEIN 6.2 G/DL (6.4-8.2); eGFR 70 ML/MIN
--- NOTE | 2022-07-18 16:02 | NUR ---
DR PASHA ANGEL FOR CRITICAL LAB VALUE CO2 14. ALSO RELAYED CURRENT GLUCOSE 178, GAP 17. TITRATED INSULIN DRIP FROM 10 UNITS HOUR TO 5 UNITS HOUR WHILST KEEPING D5 1/2 NS AT 150 ML/HR. PT AO4 RESP EVEN UNLABORED.
--- NOTE | 2022-07-18 17:00 | NUR ---
ASKED DR PAK FOR ORDERS FOR DKA PROTOCOL. VERBAL ORDER GIVEN TO PROCEED WITH PROTOCOL. UNABLE TO ENTER DKA ORDER. FAXED DKA PHYSICIAN ORDERS TO PHARMACY AND WALKED OVER A HARD COPY TO GET MEDS ONTO MAR AND KCL D5 1/2 NS TO BE MADE. MEDS NOT ENTERED KCL D5 1/2 NS NOT DELIVERED. THIS RN MOVED FORWARD AND KEPT D5 1/2 NS AT 150 AND TIRATED INSULIN DRIP FROM 10 TO 5 UNITS PER HOUR PER CONSULT WITH ICU.
--- NOTE | 2022-07-18 17:01 | NUR ---
REPORT CALLED TO PCU TO NILE PALACIOS FOR CONTINUATION OF CARE
[2022-07-18] MEDS ORDERED: normal saline 1000ml 1,000 ML IV SCH ×2 (17:40)
[2022-07-18] MEDS ORDERED: Insulin Reg/NS 100units/100mL 100 ML IV SCH (17:40)
[2022-07-18] MEDS ORDERED: Neutra Phos packet PO PRN (17:40)
[2022-07-18] MEDS ORDERED: sodium bicarbonate (8.4%) inj. 100 MEQ in dextrose 5% water 500ml 500 ML IV PRN (17:40)
[2022-07-18] MEDS ORDERED: potassium Cl 20 mEq SR tablet PO PRN ×2 (17:40)
[2022-07-18] MEDS ORDERED: sodium phosphate inj. 30 MMOL in dextrose 5%-water 250 ML IV PRN (17:40)
[2022-07-18] MEDS ORDERED: sodium bicarbonate (8.4%) inj. 50 MEQ in dextrose 5% water 500ml 250 ML IV PRN (17:40)
[2022-07-18] MEDS ORDERED: potassium Cl 40MEQ/1/2NS 520ml 520 ML IV PRN ×2 (17:40)
[2022-07-18] MEDS ORDERED: insulin regular, human U-100 3ml vial - multi-dose IV PRN (17:40)
[2022-07-18] MEDS ORDERED: sodium phosphate inj. 15 MMOL in dextrose 5%-water 250 ML IV PRN (17:40)
[2022-07-18] MEDS ORDERED: potassium CL 20mEq in D5-1/2NS 1,000 ML IV PRN (17:40)
--- NOTE | 2022-07-18 18:00 | NUR ---
pt arrived to unit at 1800. Applied quality assurance monitor body and got a set of vital signs. BG is 99. Increased d51/2 ns to 200ml/hr. Will endorse to weight shifter rn.
[2022-07-18] MEDS: dextrose 5%-1/2 normal saline 1,000 ML IV SCH (18:25)
[2022-07-18 18:27] LABS: ALBUMIN 2.6 G/DL (3.4-5.0); ANION GAP 12 (8-16); BLOOD UREA NITROGEN 20 MG/DL (7-18); BUN/CREATININE RATIO 18.5 (5.4-32.0); CALCIUM 7.6 MG/DL (8.5-10.1); CHLORIDE 106 MMOL/L (99-107); CREATININE 1.08 MG/DL (0.60-1.10); GLUCOSE 117 MG/DL (70-104); PHOSPHORUS 1.8 MG/DL (2.3-4.5); POTASSIUM 3.9 MMOL/L (3.5-5.1); SODIUM 137 MMOL/L (135-145); TOTAL CARBON DIOXIDE 18.8 MMOL/L (24-32); eGFR 79 ML/MIN
[2022-07-18 18:43] VITALS: BP 142/91
--- NOTE | 2022-07-18 20:00 | NUR ---
Pt. is awake alert oriented in no acute distress on Insulin gtt and D5 1/2 . Glucose levels are low 99 and 81. Spoke with MD; Transitioned to Lantus as ordered. Pt. able to eat and drink without nausea vomiting. Able to void large amt of urine per urinal. Medicated for back pain as needed. Pt. has a nerve stimulator on T11 and 12 that apparently is nonfunctional.
[2022-07-18] MEDS: azithromycin/NS 500mg/250ml 250 ML IV SCH (22:05)
[2022-07-18] MEDS: HYDROcodone/acetaminophen 10/325mg tab PO PRN (23:02)
[2022-07-18 23:26] LABS: ALBUMIN 2.3 G/DL (3.4-5.0); ANION GAP 19 (8-16); BLOOD UREA NITROGEN 17 MG/DL (7-18); BUN/CREATININE RATIO 16.5 (5.4-32.0); CHLORIDE 100 MMOL/L (99-107); CREATININE 1.03 MG/DL (0.60-1.10); GLUCOSE 278 MG/DL (70-104); SODIUM 132 MMOL/L (135-145); eGFR 83 ML/MIN
[2022-07-18] MEDS: insulin glargine (Lantus) pen - multi-dose SQ SCH (23:26)
[2022-07-18 23:34] VITALS: BP 136/82
[2022-07-18 23:36] LABS: PHOSPHORUS 2.4 MG/DL (2.3-4.5); POTASSIUM 4.3 MMOL/L (3.5-5.1)
[2022-07-19 02:00] VITALS: BP 133/85
[2022-07-19] MEDS: morphine 2 MG/ML inj. syringe IV PRN ×2 (03:39→10:37)
[2022-07-19] MEDS: diphenhydrAMINE 50 mg/ml inj IV PRN ×2 (03:40→20:37)
[2022-07-19 03:50] VITALS: BP 133/85
[2022-07-19] MEDS ORDERED: CALCIUM GLUCONATE IV ONE ×2 (04:55→06:20)
[2022-07-19] MEDS ORDERED: SODIUM CHLORIDE IV ONE ×2 (04:55→06:20)
--- NOTE | 2022-07-19 05:00 | NUR ---
Glucose levels remain high and C02 low notified MD Restarted Insulin gtt at 4 units as ordered. Glucose is 241 will change IV to D5 1/2 per protocol. Pt. has been medicated x3 for back pain overnight.
[2022-07-19 06:00] VITALS: BP 141/95
[2022-07-19 06:15] LABS: BASOPHILS # (AUTO) 0.1 X10'3 (0-0.2); BASOPHILS % (AUTO) 0.4 % (0-1); EOSINOPHILS % (AUTO) 0 % (0-6); HEMATOCRIT 35.1 % (42.0-52.0); HEMOGLOBIN 11.4 g/dl (14.0-17.9); LYMPHOCYTES # (AUTO) 2.2 X10'3 (1.1-4.8); LYMPHOCYTES % (AUTO) 16.5 % (21-51); MEAN CORPUSCULAR HEMOGLOBIN 26.2 PG (27.0-31.0); MEAN CORPUSCULAR HGB CONC 32.5 g/dL (33.0-36.5); MEAN CORPUSCULAR VOLUME 80.7 FL (78-98); MEAN PLATELET VOLUME 8.9 FL (7.4-10.4); MONOCYTES # (AUTO) 0.9 X10'3 (0-0.9); MONOCYTES % (AUTO) 6.5 % (2-12); NEUTROPHILS # (AUTO) 10.3 X10'3 (1.8-7.7); NEUTROPHILS % (AUTO) 76.6 % (42-75); PLATELET COUNT 272 X10'3 (140-440); RED BLOOD COUNT 4.35 X10'6 (4.70-6.10); RED CELL DISTRIBUTION WIDTH 15.1 % (11.5-14.5); WHITE BLOOD COUNT 13.4 X10'3 (4.5-11.0)
[2022-07-19] MEDS: Insulin Reg/NS 100units/100mL 100 ML IV SCH (06:18)
[2022-07-19] MEDS ORDERED: CALCIUM GLUC 1gm/50ml NACL,iso 50 ML IV ONE (06:20)
[2022-07-19] MEDS: dextrose 5%-1/2 normal saline 1,000 ML IV SCH (06:30)
[2022-07-19 06:41] LABS: ALANINE AMINOTRANSFERASE 26 U/L (12-78); ALBUMIN 2.2 G/DL (3.4-5.0); ALBUMIN/GLOBULIN RATIO 0.7 (1.1-1.5); ALKALINE PHOSPHATASE 57 IU/L (46-116); ANION GAP 16 (8-16); ASPARTATE AMINO TRANSFERASE 33 U/L (10-37); BILIRUBIN,TOTAL 0.3 MG/DL (0.1-1.0); BLOOD UREA NITROGEN 16 MG/DL (7-18); BUN/CREATININE RATIO 16.2 (5.4-32.0); CALCIUM 7.5 MG/DL (8.5-10.1); CHLORIDE 105 MMOL/L (99-107); CREATININE 0.99 MG/DL (0.60-1.10); GLUCOSE 241 MG/DL (70-104); MAGNESIUM 1.9 MG/DL (1.5-2.4); PHOSPHORUS 1.8 MG/DL (2.3-4.5); POTASSIUM 3.6 MMOL/L (3.5-5.1); SODIUM 136 MMOL/L (135-145); TOTAL PROTEIN 5.5 G/DL (6.4-8.2); eGFR 87 ML/MIN
[2022-07-19 06:52] LABS: TOTAL CARBON DIOXIDE 14.7 MMOL/L (24-32)
--- NOTE | 2022-07-19 07:17 | NUR ---
Paged PAGER ID: [phone] MESSAGE: [phone]. Annette. Critical Co2 14.7. Zoë Mandujano [phone]
[2022-07-19] MEDS: HYDROcodone/acetaminophen 10/325mg tab PO PRN ×2 (07:34→17:36)
[2022-07-19] MEDS: pantoprazole 40MG/NS 100ML BAG 100 ML IV SCH (07:38)
[2022-07-19] MEDS: docusate sod 100mg capsule PO SCH ×2 (07:40→20:15)
[2022-07-19] MEDS: magnesium oxide 400mg tablet PO SCH (07:40)
[2022-07-19] MEDS: heparin, porcine 5000 units/ml vial SQ SCH ×2 (07:41→20:16)
[2022-07-19] MEDS: dexamethasone 4mg/ml inj IV SCH (07:41)
[2022-07-19] MEDS: K and/or MAG REPLACEMENT MC SCH ×4 (08:00→20:42)
[2022-07-19] MEDS: potassium CL 20mEq in D5-1/2NS 1,000 ML IV PRN ×2 (08:37→16:32)
[2022-07-19] MEDS: CefTRIAXone/D5W-Rocephin 1gm 50 ML IV SCH (08:42)
[2022-07-19] MEDS: potassium Cl 20mEq in NS 1,000 ML IV SCH ×2 (09:45→12:05)
[2022-07-19] MEDS: normal saline 1000ml 1,000 ML IV SCH ×2 (09:51)
[2022-07-19 10:50] VITALS: BP 136/87
[2022-07-19 12:07] LABS: ALANINE AMINOTRANSFERASE 28 U/L (12-78); ALBUMIN 2.1 G/DL (3.4-5.0); ALBUMIN/GLOBULIN RATIO 0.6 (1.1-1.5); ALKALINE PHOSPHATASE 53 IU/L (46-116); ANION GAP 7 (8-16); ASPARTATE AMINO TRANSFERASE 40 U/L (10-37); BLOOD UREA NITROGEN 14 MG/DL (7-18); BUN/CREATININE RATIO 16.5 (5.4-32.0); CALCIUM 7.3 MG/DL (8.5-10.1); CHLORIDE 107 MMOL/L (99-107); CREATININE 0.85 MG/DL (0.60-1.10); GLUCOSE 118 MG/DL (70-104); SODIUM 136 MMOL/L (135-145); TOTAL CARBON DIOXIDE 21.7 MMOL/L (24-32); TOTAL PROTEIN 5.4 G/DL (6.4-8.2); eGFR > 90 ML/MIN
[2022-07-19 12:24] LABS: BILIRUBIN,TOTAL 0.1 MG/DL (0.1-1.0); POTASSIUM 3.1 MMOL/L (3.5-5.1)
--- NOTE | 2022-07-19 12:39 | NUR ---
PAGER ID: [phone] MESSAGE: [phone]. Annette. CO2 21.7, anion gap 7. BG 73. Stopped insulin gtt already. can we stop DKA protocol? Zoë Mandujano [phone]
[2022-07-19] MEDS: ondansetron/PF 4mg/2ml inj IV PRN ×2 (12:42→20:13)
[2022-07-19 14:30] VITALS: BP 145/85
[2022-07-19 17:41] LABS: ALANINE AMINOTRANSFERASE 27 U/L (12-78); ALBUMIN 2.1 G/DL (3.4-5.0); ALBUMIN/GLOBULIN RATIO 0.7 (1.1-1.5); ALKALINE PHOSPHATASE 52 IU/L (46-116); ANION GAP 10 (8-16); ASPARTATE AMINO TRANSFERASE 32 U/L (10-37); BILIRUBIN,TOTAL 0.2 MG/DL (0.1-1.0); BLOOD UREA NITROGEN 12 MG/DL (7-18); BUN/CREATININE RATIO 14.5 (5.4-32.0); CALCIUM 7.5 MG/DL (8.5-10.1); CHLORIDE 105 MMOL/L (99-107); CREATININE 0.83 MG/DL (0.60-1.10); GLUCOSE 188 MG/DL (70-104); POTASSIUM 3.6 MMOL/L (3.5-5.1); SODIUM 136 MMOL/L (135-145); TOTAL CARBON DIOXIDE 21.4 MMOL/L (24-32); TOTAL PROTEIN 5.2 G/DL (6.4-8.2); eGFR > 90 ML/MIN
--- NOTE | 2022-07-19 17:51 | NUR ---
Rec'd call from Dr Ricks. Mason to stop DKA protocol. Resume fluids 20Kcl d5 1/2 NS as patient is still nauseous and not eating. Hyper/hypoglycemic protocol is already in place.
[2022-07-19] MEDS: metoclopramide 5 mg/ml inj IV PRN (18:10)
[2022-07-19] MEDS: azithromycin/NS 500mg/250ml 250 ML IV SCH (20:19)
[2022-07-19] MEDS: insulin glargine (Lantus) pen - multi-dose SQ SCH (20:57)
[2022-07-19 22:00] VITALS: BP 127/88
[2022-07-20] MEDS: potassium CL 20mEq in D5-1/2NS 1,000 ML IV PRN (00:34)
[2022-07-20] MEDS: HYDROcodone/acetaminophen 10/325mg tab PO PRN (00:57)
[2022-07-20 02:13] VITALS: BP 144/92
--- NOTE | 2022-07-20 02:31 | NUR ---
Pt. is awake alert oriented no c/o pain [place] appears to help with back discomfort. Pt. is off Insulin gtt and tolerating only crackers and water at this time. Glucose level 229 with D5 1/2. 20 kcl. Voids per urinal large amt yellow clear urine.. Had bm earlier today. Requesting med for gas. Tolerated Mylanta well no nausea or vomiting. May need GI consult if remains unable to eat.
[2022-07-20 06:00] VITALS: BP 138/96
[2022-07-20 06:53] LABS: BASOPHILS % (AUTO) 0.4 % (0-1); EOSINOPHILS % (AUTO) 0.1 % (0-6); HEMATOCRIT 33.4 % (42.0-52.0); HEMOGLOBIN 11.2 g/dl (14.0-17.9); LYMPHOCYTES # (AUTO) 2.3 X10'3 (1.1-4.8); LYMPHOCYTES % (AUTO) 32.1 % (21-51); MEAN CORPUSCULAR HEMOGLOBIN 26.8 PG (27.0-31.0); MEAN CORPUSCULAR HGB CONC 33.7 g/dL (33.0-36.5); MEAN CORPUSCULAR VOLUME 79.4 FL (78-98); MEAN PLATELET VOLUME 8.6 FL (7.4-10.4); MONOCYTES # (AUTO) 0.6 X10'3 (0-0.9); MONOCYTES % (AUTO) 8.6 % (2-12); NEUTROPHILS # (AUTO) 4.2 X10'3 (1.8-7.7); NEUTROPHILS % (AUTO) 58.8 % (42-75); PLATELET COUNT 256 X10'3 (140-440); WHITE BLOOD COUNT 7.2 X10'3 (4.5-11.0)
[2022-07-20 07:15] LABS: ALANINE AMINOTRANSFERASE 27 U/L (12-78); ALBUMIN 2.1 G/DL (3.4-5.0); ALBUMIN/GLOBULIN RATIO 0.7 (1.1-1.5); ALKALINE PHOSPHATASE 54 IU/L (46-116); ANION GAP 3 (8-16); ASPARTATE AMINO TRANSFERASE 35 U/L (10-37); BILIRUBIN,TOTAL 0.2 MG/DL (0.1-1.0); BLOOD UREA NITROGEN 8 MG/DL (7-18); BUN/CREATININE RATIO 11.8 (5.4-32.0); CALCIUM 7.7 MG/DL (8.5-10.1); CHLORIDE 107 MMOL/L (99-107); CREATININE 0.68 MG/DL (0.60-1.10); GLUCOSE 114 MG/DL (70-104); POTASSIUM 3.2 MMOL/L (3.5-5.1); SODIUM 137 MMOL/L (135-145); TOTAL CARBON DIOXIDE 26.7 MMOL/L (24-32); TOTAL PROTEIN 5.1 G/DL (6.4-8.2); eGFR > 90 ML/MIN
[2022-07-20] MEDS: pantoprazole 40MG/NS 100ML BAG 100 ML IV SCH (07:45)
[2022-07-20] MEDS: HYDROcodone/acetaminophen 5mg/325mg tablet PO PRN ×2 (07:46→13:20)
[2022-07-20] MEDS: magnesium oxide 400mg tablet PO SCH (07:47)
[2022-07-20] MEDS: docusate sod 100mg capsule PO SCH (07:47)
[2022-07-20] MEDS: heparin, porcine 5000 units/ml vial SQ SCH (07:47)
[2022-07-20] MEDS: dexamethasone 4mg/ml inj IV SCH (07:47)
[2022-07-20] MEDS: ondansetron/PF 4mg/2ml inj IV PRN (07:47)
[2022-07-20] MEDS: CefTRIAXone/D5W-Rocephin 1gm 50 ML IV SCH (07:48)
[2022-07-20] MEDS: K and/or MAG REPLACEMENT MC SCH ×2 (08:00)
[2022-07-20] MEDS: Insulin Reg/NS 100units/100mL 100 ML IV SCH (09:51)
[2022-07-20 13:00] VITALS: BP 123/82
[2022-07-20] MEDS ORDERED: PANT40SU2 PO (13:11)
[2022-07-20] MEDS ORDERED: LEVO-65 PO (13:11)
[2022-07-21] MEDS ORDERED: pantoprazole 40mg Tablet.DR PO SCH (07:30)
[2022-07-21] MEDS ORDERED: azithromycin 250mg tablet PO SCH (20:00)
== END 2022-07-20 15:30 | disposition home or self-care (01) | DRG 420 ==
LOC: ER 17:17 → ED HOLD 20:11 → PCU 3S 07-18 17:48
PROVIDERS: ADMIT Family Medicine; ATTEND Internal Medicine
DX: E10.10 Type 1 diabetes mellitus with ketoacidosis without coma (principal); U07.1 COVID-19; N17.9 Acute kidney failure, unspecified; E10.40 Type 1 diabetes mellitus with diabetic neuropathy, unspecified; E78.5 Hyperlipidemia, unspecified; E10.22 Type 1 diabetes mellitus with diabetic chronic kidney disease; E86.0 Dehydration; F17.210 Nicotine dependence, cigarettes, uncomplicated; G40.909 Epilepsy, unspecified, not intractable, without status epilepticus; G89.4 Chronic pain syndrome; I12.9 Hypertensive chronic kidney disease with stage 1 through stage 4 chronic kidney disease, or unspecified chronic kidney disease; K76.0 Fatty (change of) liver, not elsewhere classified; N18.9 Chronic kidney disease, unspecified; K21.9 Gastro-esophageal reflux disease without esophagitis; M54.9 Dorsalgia, unspecified; Z28.310 Unvaccinated for COVID-19; Z83.3 Family history of diabetes mellitus; Z79.899 Other long term (current) drug therapy; Z79.4 Long term (current) use of insulin
CPT/HCPCS: 36415; 36600; 71045; 74176; 80048; 80053; 80061; 80305; 81001; 82009; 82550; 82803; 82948; 83036; 83605; 83690; 83735; 83880; 84100; 84145; 84484; 85008; 85018; 85025; 85379; 85610; 85730; 87040; 87635; 93005; 96374; 96375; 99291; C9113; G0378; J0456; J0610; J0696; J1100; J1200; J1644; J1815; J2270; J2405; J2765; J3480; J7030; J7042